=== PATIENT | male | born 1985 | race Caucasian/White ===

== ENCOUNTER 2018-12-17 08:26 | Inpatient (IN) | payer OTHER ==
[2018-12-17 08:50] VITALS: BMI 34.4
--- NOTE | 2018-12-17 08:59 | HP ---
CIWA Score Nausea/Vomitin Muscle Tremors: 4-Moderate,w/Arms Extend Anxiety: 4-Mod. Anxious/Guarded Agitation: 4-Moderately Restless Paroxysmal Sweats: 3 Orientation: 0-Oriented Tacttile Disturbances: 1-Very Mild Itch/Numbness Auditory Disturbances: 0-None Visual Disturbances: 0-None Headache: 3-Moderate (appropriate for detox) CIWA-Ar Total Score: 22 - Admission Criteria OASAS Guidelines: Admission for Medically Managed Detox: Requires at least one of the followin. CIWA greater than 12 2. Seizures within the past 24 hours 3. Delirium tremens within the past 24 hours 4. Hallucinations within the past 24 hours 5. Acute intervention needed for co occurring medical disorder 6. Acute intervention needed for co occurring psychiatric disorder 7. Severe withdrawal that cannot be handled at a lower level of care (continued vomiting, continued diarrhea, abnormal vital signs) requiring intravenous medication and/or fluids 8. Admitting History and Physical - Admission Chief Complaint: " I want to come back to detox. I walked out 2 days ago to go drink again." History of Present Illness: 33 year old male with history of alcohol dependence with acute withdrawals. His CIWA is elevated. He admits to signing out AMA 2 days ago to go and drink binge. He last drank this morning one beer. Poor appetite. He is drinking 50 ml of vodka bottles 10-15 per day and occasional beers. He has not have blackout but has drank into intoxication. He has tremors if he doesn't continue drinking. He was a social drinker until the 2 months ago when mother . He does not smoke ciggarettes, last smoked 6 months ago. He has used cocaine sporadically, last used 6 months ago. PMH: Asthma Psurg: None FHx: Mother multiple strokes, HTN Father from cirrhosis and alcoholic and opioid use disorder Brother: 4 in good health. Sister: 1 in good father, half sister 8 year old daughter and has a spouse. - Past Surgical History Past Surgical History: Yes: None - Advance Directives Advance Directives: No: Living Will, Health Care Proxy, DNR - Smoking History Smoking history: Former smoker Have you smoked in the past 12 months: Yes Aproximately how many cigarettes per day: 10 (6 months ago) If you are a former smoker, when did you quit?: 6 months ago - Alcohol/Substance Use Hx Alcohol Use: Yes (up to 5 liters vodka per day binges) Number of Drinks Daily: 50 History of Substance Use: reports: Cocaine Date of Last Use: 12/17/18 - Social History Usual Living Arrangement: Yes: With Spouse Do you think of yourself as: Straight/Heterosexual ADL: Independent History of Recent Travel: No [facility]mission [facility] Chief Complaint: " I want to come back to detox. I walked out 2 days ago to go drink again." Allergies/Adverse Reactions: Allergies Allergy/AdvReac Type Severity Reaction Status Date / Time No Known Allergies Allergy Verified 12/17/18 08:33 History of Present Illness: 33 year old male with history of alcohol dependence with acute withdrawals. His CIWA is elevated. He admits to signing out AMA 2 days ago to go and drink binge. He last drank this morning one beer. Poor appetite. He is drinking 50 ml of vodka bottles 10-15 per day and occasional beers. He has not have blackout but has drank into intoxication. He has tremors if he doesn't continue drinking. He was a social drinker until the 2 months ago when mother . He does not smoke ciggarettes, last smoked 6 months ago. He has used cocaine sporadically, last used 6 months ago. PMH: Asthma Psurg: None FHx: Mother multiple strokes, HTN Father from cirrhosis and alcoholic and opioid use disorder Brother: 4 in good health. Sister: 1 in good father, half sister 8 year old daughter and has a spouse. - Ebola screening Have you traveled outside of the country in the last 21 days: No Have you had contact with anyone from an Ebola affected area: No Have you been sick,other than usual withdrawal symptoms: No Do you have a fever: No - Review of Systems Constitutional: Diaphoresis, Loss of Appetite, Night Sweats EENT: reports: Blurred Vision Respiratory: reports: No Symptoms reported Cardiac: reports: No Symptoms Reported GI: reports: Nausea, Vomiting, Abdominal cramping : reports: No Symptoms Reported Musculoskeletal: reports: No Symptoms Reported Integumentary: reports: No Symptoms Reported Neuro: reports: No Symptoms reported Endocrine: reports: No Symptoms Reported Hematology: reports: No Symptoms Reported Psychiatric: reports: Judgement Intact, Orientated x3, Agitated, Anxious Other Systems: Reviewed and Negative Patient History - Patient Medical History Hx Anemia: No Hx Asthma: Yes Hx Chronic Obstructive Pulmonary Disease (COPD): No Hx Cancer: No Hx Cardiac Disorders: No Hx Congestive Heart Failure: No Hx Hypertension: No Hx Hypercholesterolemia: No Hx Pacemaker: No HX Cerebrovascular Accident: No Hx Seizures: No Hx Dementia: No Hx Diabetes: No Hx Gastrointestinal Disorders: No Hx Liver Disease: No Hx Genitourinary Disorders: No Hx Sexually Transmitted Disorders: No Hx Renal Disease (ESRD): No Hx Thyroid Disease: No Hx Human Immunodeficiency Virus (HIV): No Hx Hepatitis C: No Hx Depression: No Hx Suicide Attempt: No Hx Bipolar Disorder: No Hx Schizophrenia: No - Patient Surgical History Past Surgical History: No - PPD History Previous Implant?: Yes (1 year ago) Documented Results: Positive w/o proof Implanted On Prior [facility] Admission?: Yes Date: 11/20/17 Results: negative PPD to be Administered?: Yes - Smoking Cessation Smoking history: Former smoker Have you smoked in the past 12 months: Yes Aproximately how many cigarettes per day: 10 (6 months ago) Hx Chewing Tobacco Use: No Initiated information on smoking cessation: No - Substance & Tx. History Hx Alcohol Use: Yes (5 liters of vodka binges) Hx Substance Use: Yes Substance Use Type: Alcohol, Cocaine Hx Substance Use Treatment: Yes - Substances abused Alcohol Substance route: Oral Frequency: Daily Amount used: 10-15 nips of vodka & 1-2 beers Age of first use: 21 Date of last use: 12/17/18 Admission Physical Exam [facility] - Vital Signs Vital Signs: Vital Signs - 24 hr 12/17/18 08:33 Temperature 98.0 F Pulse Rate 112 H Respiratory 20 Rate Blood Pressure 180/109 H - Physical General Appearance: Yes: Moderate Distress HEENTM: Yes: EOMI, Hearing grossly Normal, Normal Voice, JUDI, Pharynx Normal, Tm's normal Respiratory: Yes: Chest Non-Tender, Lungs Clear, Normal Breath Sounds, No Respiratory Distress, No Accessory Muscle Use Neck: Yes: No masses,lesions,Nodules, Supple, Trachea in good position Breast: Yes: Within Normal Limits Cardiology: Yes: Regular Rhythm, Regular Rate, S1, S2 Abdominal: Yes: Non Tender, Increased Bowel Sounds, Protuberent Genitourinary: Yes: Within Normal Limits Back: Yes: Within Normal Limits Musculoskeletal: Yes: full range of Motion, Gait Steady Extremities: Yes: Normal Capillary Refill, Normal Inspection, Normal Range of Motion, Non-Tender 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, Fully Oriented, Alert, Motor Strength 5/5, Normal Mood/Affect Integumentary: Yes: Normal Color, Warm Lymphatic: Yes: Within Normal Limits - Diagnostic (1) Alcohol dependence with withdrawal Current Visit: Yes Status: Acute (2) Asthma Current Visit: Yes Status: Acute Cleared for Admission [facility] - Detox or Rehab [facility] Level of Care: Medically Managed Detox Regimen/Protocol: Librium Claeared for Rehab Admission: No Screened but not Admitted - Documentation of Visit Screened but not Admitted: No Breathalyzer - Breathalyzer Breathalyzer: 0.42 Inpatient Rehab Admission - Rehab Decision to Admit Inpatient rehab admission?: No
[2018-12-17] MEDS ORDERED: MAGNESIUM HYDROX 2400MG/30ML ORAL SUSPENSION 30 ML CUP PO PRN (09:07)
[2018-12-17] MEDS ORDERED: METHOCARBAMOL 500 MG TABLET PO PRN (09:07)
[2018-12-17] MEDS ORDERED: IBUPROFEN 400 MG TABLET (FP) PO PRN (09:07)
[2018-12-17] MEDS ORDERED: MAG HYDROX/AL HYDROX/SIMETH 30 ML UNIT-DOSE CUP PO PRN (09:07)
[2018-12-17] MEDS ORDERED: chlordiazePOXIDE HCL 25 MG CAPSULE PO PRN (09:07)
[2018-12-17] MEDS ORDERED: BISMUTH SUBSALICYLATE 262 MG/15 ML BTL PO PRN (09:07)
[2018-12-17] MEDS ORDERED: MAGNESIUM CITRATE 300 ML BOTTLE PO PRN (09:07)
[2018-12-17] MEDS ORDERED: ACETAMINOPHEN 325 MG TABLET (FP) PO PRN ×2 (09:07)
[2018-12-17] MEDS ORDERED: MENTHOL/PHENOL 1 EACH UD MM PRN (09:07)
[2018-12-17] MEDS ORDERED: ALBUTEROL SO4 8 GM HFA INHALER IH PRN (09:08)
[2018-12-17] MEDS: chlordiazePOXIDE HCL 25 MG CAPSULE PO SCH ×3 (11:29→22:02)
[2018-12-17] MEDS: PRENATAL VITAMINS W/ FOLIC ACID TABLET (FP) PO SCH (11:30)
[2018-12-17] MEDS: hydrOXYzine PAMOATE 25 MG CAPSULE (FP) PO PRN (13:56)
[2018-12-17 14:18] LABS: HEMATOCRIT 45.2 % (35.4-49); HEMOGLOBIN 15.2 GM/dL (11.7-16.9); MCH 32.6 pg (25.7-33.7); MCHC 33.6 g/dl (32.0-35.9); MEAN CELL VOLUME 97.1 fl (80-96); PLATELET COUNT 247 K/MM3 (134-434); RBC 4.66 M/mm3 (4.00-5.60); RDW 14.5 % (11.9-15.9); WHITE BLOOD COUNT 7.9 K/mm3 (4.0-10.0)
[2018-12-17 14:32] LABS: ALBUMIN 4.1 g/dl (3.4-5.0); BLOOD UREA NITROGEN 4.2 mg/dL (7-18); CALCIUM 9.1 mg/dL (8.5-10.1); CREATININE 0.8 mg/dL (0.55-1.3); POTASSIUM 3.3 mmol/L (3.5-5.1); TOT PROT 8.4 g/dl (6.4-8.2)
[2018-12-17] MEDS: THIAMINE HCL 100 MG TABLET (FP) PO SCH (22:02)
[2018-12-17] MEDS: MELATONIN 5 MG TABLETS PO PRN (22:03)
[2018-12-18] MEDS: chlordiazePOXIDE HCL 25 MG CAPSULE PO SCH ×4 (05:54→22:32)
[2018-12-18 09:52] LABS: HEMATOCRIT 41.6 % (35.4-49); HEMOGLOBIN 13.9 GM/dL (11.7-16.9); MCH 32.5 pg (25.7-33.7); MCHC 33.4 g/dl (32.0-35.9); MEAN CELL VOLUME 97.3 fl (80-96); MEAN PLT VOLUME 10.1 fl (7.5-11.1); PLATELET COUNT 184 K/MM3 (134-434); RBC 4.27 M/mm3 (4.00-5.60); RDW 13.9 % (11.9-15.9); WHITE BLOOD COUNT 5.1 K/mm3 (4.0-10.0)
[2018-12-18] MEDS: PRENATAL VITAMINS W/ FOLIC ACID TABLET (FP) PO SCH (10:36)
--- NOTE | 2018-12-18 10:51 | PN ---
S CIWA - CIWA Score Nausea/Vomitin-No Nausea/No Vomiting Muscle Tremors: 3 Anxiety: 3 Agitation: 3 Paroxysmal Sweats: 3 Orientation: 0-Oriented Tacttile Disturbances: 0-None Auditory Disturbances: 0-None Visual Disturbances: 0-None Headache: 0-None Present CIWA-Ar Total Score: 12 [facility] Progress Note (SOAP) Subjective: sweats shakes body aches irritable agitation interrupted sleep Objective: 12/18/18 10:49 Vital Signs Temperature 98.1 F 12/18/18 09:45 Pulse Rate 115 H 12/18/18 09:45 Respiratory Rate 20 12/18/18 09:45 Blood Pressure 157/99 12/18/18 09:45 O2 Sat by Pulse Oximetry (%) Laboratory Tests 12/17/18 12/17/18 12/17/18 09:50 09:50 09:50 WBC 7.9 RBC 4.66 Hgb 15.2 Hct 45.2 MCV 97.1 H MCH 32.6 MCHC 33.6 RDW 14.5 Plt Count 247 MPV 10.0 Sodium 134 L Potassium 3.3 L Chloride 93 L Carbon Dioxide 27 Anion Gap 14 BUN 4.2 L Creatinine 0.8 Est GFR (CKD-EPI)AfAm 136.03 Est GFR (CKD-EPI)NonAf 117.37 Random Glucose 114 H Calcium 9.1 Total Bilirubin 2.0 H AST 258 H ALT 99 H Alkaline Phosphatase 108 Total Protein 8.4 H Albumin 4.1 RPR Titer Nonreactive 12/18/18 08:15 WBC 5.1 RBC 4.27 Hgb 13.9 Hct 41.6 MCV 97.3 H MCH 32.5 MCHC 33.4 RDW 13.9 Plt Count 184 D MPV 10.1 Sodium Potassium Chloride Carbon Dioxide Anion Gap BUN Creatinine Est GFR (CKD-EPI)AfAm Est GFR (CKD-EPI)NonAf Random Glucose Calcium Total Bilirubin AST ALT Alkaline Phosphatase Total Protein Albumin RPR Titer labs noted elevated ast/alt d/c tylenol increase fluids repeat labs Assessment: 12/18/18 10:50 withdrawals Plan: continue detox increase fluids repeat labs
[2018-12-18] MEDS ORDERED: ALBUTEROL SO4 8 GM HFA INHALER IH PRN (10:52)
[2018-12-18] MEDS: POTASSIUM CHLORIDE TABS 20 MEQ TABLET.ER (FP) PO SCH (11:12)
[2018-12-18] MEDS: MELATONIN 5 MG TABLETS PO PRN (22:31)
[2018-12-18] MEDS: THIAMINE HCL 100 MG TABLET (FP) PO SCH (22:32)
[2018-12-19] MEDS: chlordiazePOXIDE HCL 25 MG CAPSULE PO SCH ×4 (05:16→22:20)
--- NOTE | 2018-12-19 09:43 | PN ---
[facility] CIWA - CIWA Score Nausea/Vomitin-No Nausea/No Vomiting Muscle Tremors: 3 Anxiety: 3 Agitation: 3 Paroxysmal Sweats: No Perspiration Orientation: 0-Oriented Tacttile Disturbances: 0-None Auditory Disturbances: 0-None Visual Disturbances: 0-None Headache: 0-None Present CIWA-Ar Total Score: 9 S Progress Note (SOAP) Subjective: sweats anxiety body aches Objective: 12/19/18 09:43 Vital Signs Temperature 97.9 F 12/19/18 09:24 Pulse Rate 110 H 12/19/18 09:24 Respiratory Rate 19 12/19/18 09:24 Blood Pressure 153/96 12/19/18 09:24 O2 Sat by Pulse Oximetry (%) Laboratory Tests 12/17/18 12/17/18 12/17/18 09:50 09:50 09:50 WBC 7.9 RBC 4.66 Hgb 15.2 Hct 45.2 MCV 97.1 H MCH 32.6 MCHC 33.6 RDW 14.5 Plt Count 247 MPV 10.0 Sodium 134 L Potassium 3.3 L Chloride 93 L Carbon Dioxide 27 Anion Gap 14 BUN 4.2 L Creatinine 0.8 Est GFR (CKD-EPI)AfAm 136.03 Est GFR (CKD-EPI)NonAf 117.37 Random Glucose 114 H Calcium 9.1 Total Bilirubin 2.0 H AST 258 H ALT 99 H Alkaline Phosphatase 108 Total Protein 8.4 H Albumin 4.1 RPR Titer Nonreactive 12/18/18 08:15 WBC 5.1 RBC 4.27 Hgb 13.9 Hct 41.6 MCV 97.3 H MCH 32.5 MCHC 33.4 RDW 13.9 Plt Count 184 D MPV 10.1 Sodium Potassium Chloride Carbon Dioxide Anion Gap BUN Creatinine Est GFR (CKD-EPI)AfAm Est GFR (CKD-EPI)NonAf Random Glucose Calcium Total Bilirubin AST ALT Alkaline Phosphatase Total Protein Albumin RPR Titer repeated labs pending aaox3 ambulating no acute distress mild HTN noted Assessment: 12/19/18 09:44 withdrawals pt states his mother recently from a stroke and has a family h/o of HTN. pt was advised to see his PCP and follow up regarding his HTN and family h/o to prevent stoke/or any cardiac issues. pt agreed. Plan: continue detox increase fluids mild HTN noted; will start with low dose antihypertensive medication.
[2018-12-19 10:10] LABS: BASO % 1.5 % (0-2.0); EOS % 2.7 % (0-4.5); HEMATOCRIT 41.9 % (35.4-49); HEMOGLOBIN 14.3 GM/dL (11.7-16.9); LYMPH % 19.4 % (8-40); MCH 32.9 pg (25.7-33.7); MEAN CELL VOLUME 96.8 fl (80-96); MEAN PLT VOLUME 9.8 fl (7.5-11.1); NEUT % 69.4 % (42.8-82.8); PLATELET COUNT 185 K/MM3 (134-434); RBC 4.33 M/mm3 (4.00-5.60); RDW 14.2 % (11.9-15.9); WHITE BLOOD COUNT 5.6 K/mm3 (4.0-10.0)
[2018-12-19 10:18] LABS: ALBUMIN 3.6 g/dl (3.4-5.0); CALCIUM 8.9 mg/dL (8.5-10.1); CREATININE 0.9 mg/dL (0.55-1.3); POTASSIUM 3.5 mmol/L (3.5-5.1); TOT PROT 7.6 g/dl (6.4-8.2)
[2018-12-19] MEDS: POTASSIUM CHLORIDE TABS 20 MEQ TABLET.ER (FP) PO SCH (10:19)
[2018-12-19] MEDS: PRENATAL VITAMINS W/ FOLIC ACID TABLET (FP) PO SCH (10:19)
[2018-12-19] MEDS: amLODIPine BESYLATE 5 MG TABLET (FP) PO SCH (10:19)
[2018-12-19] MEDS: cloNIDine HCL 0.1 MG TABLET PO SCH ×2 (14:12→22:20)
[2018-12-19] MEDS: MELATONIN 5 MG TABLETS PO PRN (22:20)
[2018-12-19] MEDS: THIAMINE HCL 100 MG TABLET (FP) PO SCH (22:20)
[2018-12-20] MEDS ORDERED: chlordiazePOXIDE HCL 10 MG CAPSULE PO PRN
[2018-12-20] MEDS: chlordiazePOXIDE HCL 10 MG CAPSULE PO SCH ×4 (05:54→22:16)
--- NOTE | 2018-12-20 10:02 | PN ---
[facility] CIWA - CIWA Score Nausea/Vomitin-No Nausea/No Vomiting Muscle Tremors: 2 Anxiety: 1-Mildly Anxious Agitation: 1-Slight > Activity Paroxysmal Sweats: 1-Minimal Palms Moist Orientation: 0-Oriented Tacttile Disturbances: 0-None Auditory Disturbances: 0-None Visual Disturbances: 0-None Headache: 0-None Present CIWA-Ar Total Score: 5 [facility] Progress Note (SOAP) Subjective: sweats anxiety Objective: 12/20/18 10:01 Vital Signs Temperature 98.1 F 12/20/18 09:29 Pulse Rate 93 H 12/20/18 09:29 Respiratory Rate 18 12/20/18 09:29 Blood Pressure 128/80 12/20/18 09:29 O2 Sat by Pulse Oximetry (%) aaox3 ambulating no acute distress BP improving Assessment: 12/20/18 10:02 mild withdrawals Plan: continue detox continue with clonidine and norvasc until d/c for his HTN pt encouraged to speak and f/u with his PCP and pt agrees.
[2018-12-20] MEDS: amLODIPine BESYLATE 5 MG TABLET (FP) PO SCH (10:19)
[2018-12-20] MEDS: PRENATAL VITAMINS W/ FOLIC ACID TABLET (FP) PO SCH (10:19)
[2018-12-20] MEDS: POTASSIUM CHLORIDE TABS 20 MEQ TABLET.ER (FP) PO SCH (10:19)
[2018-12-20] MEDS: cloNIDine HCL 0.1 MG TABLET PO SCH ×2 (10:19→22:16)
[2018-12-20] MEDS: THIAMINE HCL 100 MG TABLET (FP) PO SCH (22:16)
[2018-12-20] MEDS: MELATONIN 5 MG TABLETS PO PRN (22:17)
[2018-12-21] MEDS: hydrOXYzine PAMOATE 25 MG CAPSULE (FP) PO PRN (01:59)
[2018-12-21] MEDS: chlordiazePOXIDE HCL 10 MG CAPSULE PO SCH ×2 (05:35→16:39)
[2018-12-21] MEDS: amLODIPine BESYLATE 5 MG TABLET (FP) PO SCH (09:24)
[2018-12-21] MEDS: POTASSIUM CHLORIDE TABS 20 MEQ TABLET.ER (FP) PO SCH (09:24)
[2018-12-21] MEDS: cloNIDine HCL 0.1 MG TABLET PO SCH ×2 (09:24→21:45)
[2018-12-21] MEDS: PRENATAL VITAMINS W/ FOLIC ACID TABLET (FP) PO SCH (09:24)
--- NOTE | 2018-12-21 11:35 | PN ---
S CIWA - CIWA Score Nausea/Vomitin-No Nausea/No Vomiting Muscle Tremors: 2 Anxiety: 0-No Anxiety, at Ease Agitation: 1-Slight > Activity Paroxysmal Sweats: No Perspiration Orientation: 0-Oriented Tacttile Disturbances: 0-None Auditory Disturbances: 0-None Visual Disturbances: 0-None Headache: 0-None Present CIWA-Ar Total Score: 3 [facility] Progress Note (SOAP) Subjective: feeling better little anxiety Objective: 12/21/18 11:34 Vital Signs Temperature 97.7 F 12/21/18 09:38 Pulse Rate 87 12/21/18 09:38 Respiratory Rate 18 12/21/18 09:38 Blood Pressure 130/77 12/21/18 09:38 O2 Sat by Pulse Oximetry (%) aaox3 ambulating no acute distress Assessment: 12/21/18 11:34 mild withdrawals Plan: continue detox d/c in am
[2018-12-21] MEDS: THIAMINE HCL 100 MG TABLET (FP) PO SCH (21:44)
[2018-12-21] MEDS: MELATONIN 5 MG TABLETS PO PRN (21:45)
[2018-12-22] MEDS: hydrOXYzine PAMOATE 25 MG CAPSULE (FP) PO PRN (02:38)
[2018-12-22] MEDS ORDERED: chlordiazePOXIDE HCL 10 MG CAPSULE PO ONE (05:00)
--- NOTE | 2018-12-22 09:14 | DS ---
[facility] Detox Discharge Summary Admission Date: 12/17/18 Discharge Date: 12/22/18 - History Present History: Alcohol Dependence - Physical Exam Results Vital Signs: Vital Signs Temperature 97.9 F 12/22/18 05:41 Pulse Rate 90 12/22/18 05:41 Respiratory Rate 18 12/22/18 05:41 Blood Pressure 134/84 12/22/18 05:41 O2 Sat by Pulse Oximetry (%) Pertinent Admission Physical Exam Findings: pt arrived in withdrawal Vital Signs Temperature 97.9 F 12/22/18 05:41 Pulse Rate 90 12/22/18 05:41 Respiratory Rate 18 12/22/18 05:41 Blood Pressure 134/84 12/22/18 05:41 O2 Sat by Pulse Oximetry (%) Laboratory Tests 12/17/18 12/17/18 12/17/18 09:50 09:50 09:50 WBC 7.9 RBC 4.66 Hgb 15.2 Hct 45.2 MCV 97.1 H MCH 32.6 MCHC 33.6 RDW 14.5 Plt Count 247 MPV 10.0 Absolute Neuts (auto) Neutrophils % Lymphocytes % Monocytes % Eosinophils % Basophils % Nucleated RBC % Sodium 134 L Potassium 3.3 L Chloride 93 L Carbon Dioxide 27 Anion Gap 14 BUN 4.2 L Creatinine 0.8 Est GFR (CKD-EPI)AfAm 136.03 Est GFR (CKD-EPI)NonAf 117.37 Random Glucose 114 H Calcium 9.1 Total Bilirubin 2.0 H AST 258 H ALT 99 H Alkaline Phosphatase 108 Total Protein 8.4 H Albumin 4.1 RPR Titer Nonreactive 12/18/18 12/19/18 12/19/18 08:15 08:30 08:30 WBC 5.1 5.6 RBC 4.27 4.33 Hgb 13.9 14.3 Hct 41.6 41.9 MCV 97.3 H 96.8 H MCH 32.5 32.9 MCHC 33.4 34.0 RDW 13.9 14.2 Plt Count 184 D 185 MPV 10.1 9.8 Absolute Neuts (auto) 3.9 Neutrophils % 69.4 Lymphocytes % 19.4 Monocytes % 7.0 Eosinophils % 2.7 Basophils % 1.5 Nucleated RBC % 0 Sodium 135 L Potassium 3.5 Chloride 98 Carbon Dioxide 29 Anion Gap 8 BUN 5.0 L Creatinine 0.9 Est GFR (CKD-EPI)AfAm 129.61 Est GFR (CKD-EPI)NonAf 111.83 Random Glucose 119 H Calcium 8.9 Total Bilirubin 2.0 H AST 160 H ALT 91 H Alkaline Phosphatase 97 Total Protein 7.6 Albumin 3.6 RPR Titer today pt is aaox3 ambulating no acute distress no s/s of withdrawals - Treatment Hospital Course: Detox Protocol Followed, Detoxed Safely, Responded well, Discharged Condition Good, Rehab Referral Accepted Patient has Accepted a Rehab Referral to: referral provided - Medication Discharge Medications: Ambulatory Orders Albuterol Sulfate Inhaler - [Ventolin Hfa Inhaler -] 1 - 2 inh PO PRN PRN - Diagnosis (1) Alcohol dependence with withdrawal Current Visit: Yes Status: Chronic Qualifiers: Complication of substance-induced condition: uncomplicated Qualified Code(s ): F10.230 - Alcohol dependence with withdrawal, uncomplicated (2) Asthma Current Visit: Yes Status: Chronic Qualifiers: Asthma severity: mild Asthma persistence: unspecified Asthma complication type: unspecified Qualified Code(s): J45.909 - Unspecified asthma , uncomplicated (3) Hypertension Current Visit: Yes Status: Acute Qualifiers: Hypertension type: unspecified Qualified Code(s): I10 - Essential (primary ) hypertension - AMA Did Patient Leave Against Medical Advice: No
[2018-12-22 09:27] VITALS: BP 135/87; PULSE 98; TEMP 97.7
[2018-12-22] MEDS: amLODIPine BESYLATE 5 MG TABLET (FP) PO SCH (09:39)
[2018-12-22] MEDS: cloNIDine HCL 0.1 MG TABLET PO SCH (09:39)
[2018-12-22] MEDS: PRENATAL VITAMINS W/ FOLIC ACID TABLET (FP) PO SCH (09:40)
== END 2018-12-22 09:45 | disposition home or self-care (01) | DRG 775 ==
LOC: YASAS 08:26 → Y6N 09:51
PROVIDERS: ADMIT Allergy & Immunology; ATTEND Allergy & Immunology
PROC: HZ2ZZZZ Detoxification Services for Substance Abuse Treatment (ICD-10-PCS; principal; 2018-12-17)
DX: F10.230 Alcohol dependence with withdrawal, uncomplicated (principal); I10 Essential (primary) hypertension; J45.909 Unspecified asthma, uncomplicated; R74.0 Nonspecific elevation of levels of transaminase and lactic acid dehydrogenase [LDH]; E87.6 Hypokalemia; Z87.891 Personal history of nicotine dependence
CPT/HCPCS: 36415; 80053; 85025; 85027; 86593; J0735

== ENCOUNTER 2019-01-21 10:50 | Inpatient (IN) | payer OTHER ==
[2019-01-21 11:25] VITALS: BMI 33.1
--- NOTE | 2019-01-21 12:06 | HP ---
CIWA Score Nausea/Vomitin-Mild Nausea/No Vomiting Muscle Tremors: 3 Anxiety: 4-Mod. Anxious/Guarded Agitation: 3 Paroxysmal Sweats: 1-Minimal Palms Moist Orientation: 1-Uncertain about Date Tacttile Disturbances: 0-None Auditory Disturbances: 0-None Visual Disturbances: 0-None Headache: 2-Mild CIWA-Ar Total Score: 15 - Admission Criteria OASAS Guidelines: Admission for Medically Managed Detox: Requires at least one of the followin. CIWA greater than 12 2. Seizures within the past 24 hours 3. Delirium tremens within the past 24 hours 4. Hallucinations within the past 24 hours 5. Acute intervention needed for co occurring medical disorder 6. Acute intervention needed for co occurring psychiatric disorder 7. Severe withdrawal that cannot be handled at a lower level of care (continued vomiting, continued diarrhea, abnormal vital signs) requiring intravenous medication and/or fluids 8. Admitting History and Physical - Admission Chief Complaint: "I want to stop drinking and get help." History of Present Illness: 33 year old male with history of alcohol dependence with withdrawal who relapsed over the iday. He did complete detox in 11/2018 and was fine until the . He re-started drinking alcohol on 01/12/19. He wants to be readmitted for detox this time but follow up with rehab and then go to an outpatient treatment program. He is drinking 10-15 nips of vodka daily, last drank this morning. Breathalyzer today is 0.182 He has never blacked out. Patient denies seizures on withdrawals. 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 He stopped smoking ciggarettes years ago. PMH: Asthma, HTN Psurg: None Patient no pending legal issues History Source: Patient Limitations to Obtaining History: No Limitations - Past Medical History Cardiovascular: Yes: HTN Pulmonary: Yes: Asthma - Past Surgical History Past Surgical History: Yes: None - Smoking History Smoking history: Former smoker Have you smoked in the past 12 months: Yes Aproximately how many cigarettes per day: 10 If you are a former smoker, when did you quit?: 6 months ago - Alcohol/Substance Use Hx Alcohol Use: Yes (5 liters of vodka binges) Number of Drinks Daily: 50 History of Substance Use: reports: Cocaine Date of Last Use: 10/28/19 - Social History Usual Living Arrangement: Yes: Alone Do you think of yourself as: Straight/Heterosexual ADL: Independent 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 - [facility] Allergies/Adverse Reactions: Allergies Allergy/AdvReac Type Severity Reaction Status Date / Time No Known Allergies Allergy Verified 01/21/19 11:19 Exam Limitations: No Limitations - Ebola screening Have you traveled outside of the country in the last 21 days: No (N) Have you had contact with anyone from an Ebola affected area: No Have you been sick,other than usual withdrawal symptoms: No Do you have a fever: No - Review of Systems Constitutional: Chills, Diaphoresis, Loss of Appetite EENT: reports: No Symptoms Reported Respiratory: reports: No Symptoms reported Cardiac: reports: No Symptoms Reported GI: reports: Nausea : reports: No Symptoms Reported Musculoskeletal: reports: No Symptoms Reported Integumentary: reports: No Symptoms Reported Neuro: reports: No Symptoms reported Endocrine: reports: No Symptoms Reported Hematology: reports: No Symptoms Reported Psychiatric: reports: No Sypmtoms Reported, Judgement Intact, Orientated x3, Agitated, Anxious Other Systems: Reviewed and Negative Patient History - Patient Medical History Hx Anemia: No Hx Asthma: Yes Hx Chronic Obstructive Pulmonary Disease (COPD): No Hx Cancer: No Hx Cardiac Disorders: No Hx Congestive Heart Failure: No Hx Hypertension: No Hx Hypercholesterolemia: No Hx Pacemaker: No HX Cerebrovascular Accident: No Hx Seizures: No Hx Dementia: No Hx Diabetes: No Hx Gastrointestinal Disorders: No Hx Liver Disease: No Hx Genitourinary Disorders: No Hx Sexually Transmitted Disorders: No Hx Renal Disease (ESRD): No Hx Thyroid Disease: No Hx Human Immunodeficiency Virus (HIV): No Hx Hepatitis C: No Hx Depression: No Hx Suicide Attempt: No Hx Bipolar Disorder: No Hx Schizophrenia: No - Patient Surgical History Past Surgical History: No Hx Neurologic Surgery: No Hx Cataract Extraction: No Hx Cardiac Surgery: No Hx Lung Surgery: No Hx Breast Surgery: No Hx Breast Biopsy: No Hx Abdominal Surgery: No Hx Appendectomy: No Hx Cholecystectomy: No Hx Genitourinary Surgery: No Hx Section: No Hx Orthopedic Surgery: No Anesthesia Reaction: No - PPD History Previous Implant?: Yes Documented Results: Negative w/proof Implanted On Prior [facility] Admission?: Yes Date: 12/19/18 Results: negative PPD to be Administered?: Yes - Smoking Cessation Smoking history: Former smoker Have you smoked in the past 12 months: Yes Aproximately how many cigarettes per day: 10 If you are a former smoker, when did you quit?: 6 months ago Hx Chewing Tobacco Use: No Initiated information on smoking cessation: No - Substance & Tx. History Hx Alcohol Use: Yes (nips of vodka daily) Hx Substance Use: Yes Substance Use Type: Alcohol, Marijuana Hx Substance Use Treatment: No - Substances abused Alcohol Substance route: Oral Frequency: Daily Amount used: 10-15 nips of vodka & 1-2 beers Age of first use: 21 Date of last use: 01/19/19 Marijuana/Hashish Substance route: Inhalation Amount used: just used this past week Date of last use: 01/19/19 Admission Physical Exam [facility] - Physical General Appearance: Yes: Moderate Distress HEENTM: Yes: EOMI, Hearing grossly Normal, Normal ENT Inspection, Normocephalic , Normal Voice, JUDI, Pharynx Normal, Tm's normal Respiratory: Yes: Chest Non-Tender, Lungs Clear, Normal Breath Sounds, No Respiratory Distress, No Accessory Muscle Use Neck: Yes: No masses,lesions,Nodules, Supple, Trachea in good position Breast: Yes: Within Normal Limits Cardiology: Yes: Regular Rhythm, S1, S2, Tachycardia Abdominal: Yes: Normal Bowel Sounds, Non Tender, Soft, Protuberent, Hepatomegaly Genitourinary: Yes: Within Normal Limits Back: Yes: Normal Inspection Musculoskeletal: Yes: full range of Motion, Gait Steady, Pelvis Stable Extremities: Yes: Normal Capillary Refill, Normal Inspection 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, Alert, Motor Strength 5/5, Normal Response Integumentary: Yes: Within Normal Limits Lymphatic: Yes: Within Normal Limits - Diagnostic (1) Alcohol dependence with withdrawal Current Visit: No Status: Chronic Qualifiers: Complication of substance-induced condition: uncomplicated Qualified Code(s ): F10.230 - Alcohol dependence with withdrawal, uncomplicated (2) Asthma Current Visit: No Status: Chronic Qualifiers: Asthma severity: mild Asthma persistence: unspecified Asthma complication type: unspecified Qualified Code(s): J45.909 - Unspecified asthma , uncomplicated (3) Hypertension Current Visit: No Status: Acute Qualifiers: Hypertension type: unspecified Qualified Code(s): I10 - Essential (primary ) hypertension Cleared for Admission [facility] - Detox or Rehab [facility] Level of Care: Medically Managed Detox Regimen/Protocol: Not Applicable (ativan detox protocol) Claeared for Rehab Admission: No Screened but not Admitted - Documentation of Visit Screened but not Admitted: No Breathalyzer - Breathalyzer Breathalyzer: 0.217 Vital Signs - Vital Signs Vital signs refused: No Urine Drug Screen - Test Device Lot number: [id number] Expiration date: 08/19/20 - Control Is test valid?: Yes - Results Drug screen NEGATIVE: No Urine drug screen results: THC-Marijuana, BZO-Benzodiazepines Inpatient Rehab Admission - Rehab Decision to Admit Inpatient rehab admission?: No
[2019-01-21] MEDS ORDERED: ALBUTEROL SO4 8 GM HFA INHALER IH PRN ×2 (12:48→18:21)
[2019-01-21] MEDS ORDERED: MAGNESIUM HYDROX 2400MG/30ML ORAL SUSPENSION 30 ML CUP PO PRN (12:49)
[2019-01-21] MEDS ORDERED: MENTHOL/PHENOL 1 EACH UD MM PRN (12:49)
[2019-01-21] MEDS ORDERED: ACETAMINOPHEN 325 MG TABLET (FP) PO PRN ×2 (12:49)
[2019-01-21] MEDS ORDERED: IBUPROFEN 400 MG TABLET (FP) PO PRN (12:49)
[2019-01-21] MEDS ORDERED: BISMUTH SUBSALICYLATE 262 MG/15 ML BTL PO PRN (12:49)
[2019-01-21] MEDS ORDERED: MAG HYDROX/AL HYDROX/SIMETH 30 ML UNIT-DOSE CUP PO PRN (12:49)
[2019-01-21] MEDS ORDERED: LORazepam 1 MG TABLET PO PRN (12:49)
[2019-01-21] MEDS ORDERED: MAGNESIUM CITRATE 300 ML BOTTLE PO PRN (12:49)
[2019-01-21] MEDS ORDERED: METHOCARBAMOL 500 MG TABLET PO PRN (12:49)
[2019-01-21] MEDS: hydrOXYzine PAMOATE 25 MG CAPSULE (FP) PO PRN (15:41)
[2019-01-21] MEDS: LORazepam 2 MG TABLET PO SCH ×2 (16:45→22:01)
[2019-01-21] MEDS ORDERED: cloNIDine HCL 0.1 MG TABLET PO STA (18:59)
[2019-01-21] MEDS ORDERED: cloNIDine HCL 0.1 MG TABLET PO ONE (19:15)
[2019-01-21] MEDS: MELATONIN 5 MG TABLETS PO PRN (22:01)
[2019-01-21] MEDS: THIAMINE HCL 100 MG TABLET (FP) PO SCH (22:01)
[2019-01-22] MEDS: hydrOXYzine PAMOATE 25 MG CAPSULE (FP) PO PRN (01:35)
[2019-01-22] MEDS: LORazepam 2 MG TABLET PO SCH ×4 (05:22→22:08)
[2019-01-22] MEDS: amLODIPine BESYLATE 5 MG TABLET (FP) PO SCH (10:23)
[2019-01-22] MEDS: PRENATAL VITAMINS W/ FOLIC ACID TABLET (FP) PO SCH (10:23)
--- NOTE | 2019-01-22 12:04 | PN ---
S CIWA - CIWA Score Nausea/Vomitin-No Nausea/No Vomiting Muscle Tremors: 4-Moderate,w/Arms Extend Anxiety: 3 Agitation: 4-Moderately Restless Paroxysmal Sweats: 3 Orientation: 0-Oriented Tacttile Disturbances: 0-None Auditory Disturbances: 0-None Visual Disturbances: 0-None Headache: 0-None Present CIWA-Ar Total Score: 14 [facility] Progress Note (SOAP) Subjective: sweats shakes interrupted sleep body aches tired Objective: 01/22/19 12:04 Vital Signs Temperature 97.7 F 01/22/19 09:25 Pulse Rate 99 H 01/22/19 09:25 Respiratory Rate 14 01/22/19 09:25 Blood Pressure 134/73 01/22/19 09:25 O2 Sat by Pulse Oximetry (%) labs pending aaox3 sitting at edge of bed; eating lunch no acute distress Assessment: 01/22/19 12:04 withdrawals Plan: continue detox increase fluids
--- NOTE | 2019-01-22 15:00 | PN ---
[facility] Progress Note Note: [facility] History and Physical Patient Name: ANGIE FREGOSO Date of : 85 Patient Status: Referred Attending Provider: Tung Domínguez Date: 01/21/19 12:00 Initialization Date: 01/21/19 12:00 CIWA Score Nausea/Vomitin-Mild Nausea/No Vomiting Muscle Tremors: 3 Anxiety: 4-Mod. Anxious/Guarded Agitation: 3 Paroxysmal Sweats: 1-Minimal Palms Moist Orientation: 1-Uncertain about Date Tacttile Disturbances: 0-None Auditory Disturbances: 0-None Visual Disturbances: 0-None Headache: 2-Mild CIWA-Ar Total Score: 15 - Admission Criteria OASAS Guidelines: Admission for Medically Managed Detox: Requires at least one of the followin. CIWA greater than 12 2. Seizures within the past 24 hours 3. Delirium tremens within the past 24 hours 4. Hallucinations within the past 24 hours 5. Acute intervention needed for co occurring medical disorder 6. Acute intervention needed for co occurring psychiatric disorder 7. Severe withdrawal that cannot be handled at a lower level of care (continued vomiting, continued diarrhea, abnormal vital signs) requiring intravenous medication and/or fluids 8. Admitting History and Physical - Admission Chief Complaint: "I want to stop drinking and get help." History of Present Illness: 33 year old male with history of alcohol dependence with withdrawal who relapsed over the idays. He did complete detox in 11/2018 and was fine until the . He re-started drinking alcohol on 01/12/19. He wants to be readmitted for detox this time but follow up with rehab and then go to an outpatient treatment program. He is drinking 10-15 nips of vodka daily, last drank this morning. Breathalyzer today is 0.182 He has never blacked out. Patient denies seizures on withdrawals. 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 He stopped smoking ciggarettes years ago. PMH: Asthma, HTN Psurg: None Patient no pending legal issues History Source: Patient Limitations to Obtaining History: No Limitations - Past Medical History Cardiovascular: Yes: HTN Pulmonary: Yes: Asthma - Past Surgical History Past Surgical History: Yes: None - Smoking History Smoking history: Former smoker Have you smoked in the past 12 months: Yes Aproximately how many cigarettes per day: 10 If you are a former smoker, when did you quit?: 6 months ago - Alcohol/Substance Use Hx Alcohol Use: Yes (5 liters of vodka binges) Number of Drinks Daily: 50 History of Substance Use: reports: Cocaine Date of Last Use: 12/17/18 - Social History Usual Living Arrangement: Yes: Alone Do you think of yourself as: Straight/Heterosexual ADL: Independent 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, 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 Travel: No Admission [facility] Allergies/Adverse Reactions: Allergies Allergy/AdvReac Type Severity Reaction Status Date / Time No Known Allergies Allergy Verified 01/21/19 11:19 Exam Limitations: No Limitations - Ebola screening Have you traveled outside of the country in the last 21 days: No (N) Have you had contact with anyone from an Ebola affected area: No Have you been sick,other than usual withdrawal symptoms: No Do you have a fever: No - Review of Systems Constitutional: Chills, Diaphoresis, Loss of Appetite EENT: reports: No Symptoms Reported Respiratory: reports: No Symptoms reported Cardiac: reports: No Symptoms Reported GI: reports: Nausea : reports: No Symptoms Reported Musculoskeletal: reports: No Symptoms Reported Integumentary: reports: No Symptoms Reported Neuro: reports: No Symptoms reported Endocrine: reports: No Symptoms Reported Hematology: reports: No Symptoms Reported Psychiatric: reports: No Sypmtoms Reported, Judgement Intact, Orientated x3, Agitated, Anxious Other Systems: Reviewed and Negative Patient History - Patient Medical History Hx Anemia: No Hx Asthma: Yes Hx Chronic Obstructive Pulmonary Disease (COPD): No Hx Cancer: No Hx Cardiac Disorders: No Hx Congestive Heart Failure: No Hx Hypertension: No Hx Hypercholesterolemia: No Hx Pacemaker: No HX Cerebrovascular Accident: No Hx Seizures: No Hx Dementia: No Hx Diabetes: No Hx Gastrointestinal Disorders: No Hx Liver Disease: No Hx Genitourinary Disorders: No Hx Sexually Transmitted Disorders: No Hx Renal Disease (ESRD): No Hx Thyroid Disease: No Hx Human Immunodeficiency Virus (HIV): No Hx Hepatitis C: No Hx Depression: No Hx Suicide Attempt: No Hx Bipolar Disorder: No Hx Schizophrenia: No - Patient Surgical History Past Surgical History: No Hx Neurologic Surgery: No Hx Cataract Extraction: No Hx Cardiac Surgery: No Hx Lung Surgery: No Hx Breast Surgery: No Hx Breast Biopsy: No Hx Abdominal Surgery: No Hx Appendectomy: No Hx Cholecystectomy: No Hx Genitourinary Surgery: No Hx Section: No Hx Orthopedic Surgery: No Anesthesia Reaction: No - PPD History Previous Implant?: Yes Documented Results: Negative w/proof Implanted On Prior [facility] Admission?: Yes Date: 12/19/18 Results: negative PPD to be Administered?: Yes - Smoking Cessation Smoking history: Former smoker Have you smoked in the past 12 months: Yes Aproximately how many cigarettes per day: 10 If you are a former smoker, when did you quit?: 6 months ago Hx Chewing Tobacco Use: No Initiated information on smoking cessation: No - Substance & Tx. History Hx Alcohol Use: Yes (nips of vodka daily) Hx Substance Use: Yes Substance Use Type: Alcohol, Marijuana Hx Substance Use Treatment: No - Substances abused Alcohol Substance route: Oral Frequency: Daily Amount used: 10-15 nips of vodka & 1-2 beers Age of first use: 21 Date of last use: 01/19/19 Marijuana/Hashish Substance route: Inhalation Amount used: just used this past week Date of last use: 01/19/19 Admission Physical Exam [facility] - Physical General Appearance: Yes: Moderate Distress HEENTM: Yes: EOMI, Hearing grossly Normal, Normal ENT Inspection, Normocephalic , Normal Voice, JUDI, Pharynx Normal, Tm's normal Respiratory: Yes: Chest Non-Tender, Lungs Clear, Normal Breath Sounds, No Respiratory Distress, No Accessory Muscle Use Neck: Yes: No masses,lesions,Nodules, Supple, Trachea in good position Breast: Yes: Within Normal Limits Cardiology: Yes: Regular Rhythm, S1, S2, Tachycardia Abdominal: Yes: Normal Bowel Sounds, Non Tender, Soft, Protuberent, Hepatomegaly Genitourinary: Yes: Within Normal Limits Back: Yes: Normal Inspection Musculoskeletal: Yes: full range of Motion, Gait Steady, Pelvis Stable Extremities: Yes: Normal Capillary Refill, Normal Inspection Neurological: Yes: terra cotta setter II-XII NML intact, Alert, Motor Strength 5/5, Normal Response Integumentary: Yes: Within Normal Limits Lymphatic: Yes: Within Normal Limits - Diagnostic (1) Hypertension Current Visit: Yes Status: Acute Qualifiers: Hypertension type: unspecified Qualified Code(s): I10 - Essential (primary ) hypertension (2) Alcohol dependence with withdrawal Current Visit: Yes Status: Chronic Qualifiers: Complication of substance-induced condition: uncomplicated Qualified Code(s ): F10.230 - Alcohol dependence with withdrawal, uncomplicated (3) Asthma Current Visit: Yes Status: Chronic Qualifiers: Asthma severity: mild Asthma persistence: unspecified Asthma complication type: unspecified Qualified Code(s): J45.909 - Unspecified asthma , uncomplicated Cleared for Admission [facility] - Detox or Rehab [facility] Level of Care: Medically Managed Detox Regimen/Protocol: Not Applicable (ativan detox protocol) Claeared for Rehab Admission: No Screened but not Admitted - Documentation of Visit Screened but not Admitted: No Breathalyzer - Breathalyzer Breathalyzer: 0.217 Vital Signs - Vital Signs Vital signs refused: No Urine Drug Screen - Test Device Lot number: [id number] Expiration date: 08/19/20 - Control Is test valid?: Yes - Results Drug screen NEGATIVE: No Urine drug screen results: THC-Marijuana, BZO-Benzodiazepines Inpatient Rehab Admission - Rehab Decision to Admit Inpatient rehab admission?: No
[2019-01-22] MEDS: THIAMINE HCL 100 MG TABLET (FP) PO SCH (22:07)
[2019-01-22] MEDS: MELATONIN 5 MG TABLETS PO PRN (22:08)
[2019-01-23] MEDS: LORazepam 1 MG TABLET PO SCH ×4 (04:43→22:01)
[2019-01-23] MEDS: hydrOXYzine PAMOATE 25 MG CAPSULE (FP) PO PRN (04:43)
[2019-01-23] MEDS: amLODIPine BESYLATE 5 MG TABLET (FP) PO SCH (10:19)
[2019-01-23] MEDS: PRENATAL VITAMINS W/ FOLIC ACID TABLET (FP) PO SCH (10:19)
--- NOTE | 2019-01-23 10:24 | PN ---
S CIWA - CIWA Score Nausea/Vomitin-No Nausea/No Vomiting Muscle Tremors: 3 Anxiety: 2 Agitation: 3 Paroxysmal Sweats: 2 Orientation: 0-Oriented Tacttile Disturbances: 0-None Auditory Disturbances: 0-None Visual Disturbances: 0-None Headache: 0-None Present CIWA-Ar Total Score: 10 B[facility] Progress Note (SOAP) Subjective: sweats shakes body aches interrupted sleep Objective: 01/23/19 10:22 Vital Signs Temperature 98.1 F 01/23/19 09:21 Pulse Rate 83 01/23/19 09:21 Respiratory Rate 18 01/23/19 09:21 Blood Pressure 156/89 01/23/19 09:21 O2 Sat by Pulse Oximetry (%) labs noted aaox3 ambulating no acute distress Assessment: 01/23/19 10:23 withdrawals Plan: continue detox increase fluids
[2019-01-23] MEDS: THIAMINE HCL 100 MG TABLET (FP) PO SCH (22:01)
[2019-01-23] MEDS: MELATONIN 5 MG TABLETS PO PRN (22:02)
[2019-01-24] MEDS ORDERED: LORazepam 0.5 MG TABLET PO PRN
[2019-01-24] MEDS: hydrOXYzine PAMOATE 25 MG CAPSULE (FP) PO PRN (03:01)
[2019-01-24] MEDS: LORazepam 0.5 MG TABLET PO SCH ×2 (05:40→10:21)
[2019-01-24] MEDS: PRENATAL VITAMINS W/ FOLIC ACID TABLET (FP) PO SCH (10:21)
[2019-01-24] MEDS: amLODIPine BESYLATE 5 MG TABLET (FP) PO SCH (10:21)
--- NOTE | 2019-01-24 11:37 | PN ---
S CIWA - CIWA Score Nausea/Vomitin-No Nausea/No Vomiting Muscle Tremors: 2 Anxiety: 1-Mildly Anxious Agitation: 1-Slight > Activity Paroxysmal Sweats: No Perspiration Orientation: 0-Oriented Tacttile Disturbances: 0-None Auditory Disturbances: 0-None Visual Disturbances: 0-None Headache: 0-None Present CIWA-Ar Total Score: 4 BHS Progress Note (SOAP) Subjective: feeling much better little anxiety Objective: 01/24/19 11:36 Vital Signs Temperature 97.5 F L 01/24/19 09:36 Pulse Rate 83 01/24/19 09:36 Respiratory Rate 18 01/24/19 09:36 Blood Pressure 134/74 01/24/19 09:36 O2 Sat by Pulse Oximetry (%) aaox3 ambulating no acute distress Assessment: 01/24/19 11:36 mild withdrawals Plan: continue detox d/c in am
[2019-01-24 13:14] VITALS: BP 141/79; PULSE 92; TEMP 98.1
--- NOTE | 2019-01-24 14:29 | DS ---
[facility] Detox Discharge Summary Admission Date: 01/21/19 Discharge Date: 01/24/19 - History Present History: Alcohol Dependence - Physical Exam Results Vital Signs: Vital Signs Temperature 98.1 F 01/24/19 13:13 Pulse Rate 92 H 01/24/19 13:13 Respiratory Rate 20 01/24/19 13:13 Blood Pressure 141/79 01/24/19 13:13 O2 Sat by Pulse Oximetry (%) Pertinent Admission Physical Exam Findings: Vital Signs Temperature 98.1 F 01/24/19 13:13 Pulse Rate 92 H 01/24/19 13:13 Respiratory Rate 01/24/19 13:13 Blood Pressure 141/79 01/24/19 13:13 O2 Sat by Pulse Oximetry (%) aaox3 ambulating no acute distress - Treatment Hospital Course: Detox Protocol Followed, Detoxed Safely, Responded well, Discharged Condition Good, Rehab Referral Accepted - Medication Discharge Medications: Ambulatory Orders Albuterol Sulfate Inhaler - [Ventolin HFA Inhaler -] 2 inh PO PRN PRN #1 inhaler 12/22/18 Amlodipine Besylate [Norvasc -] 5 mg PO DAILY #14 tablet 12/22/18 - Diagnosis (1) Hypertension Current Visit: No Status: Acute Qualifiers: Hypertension type: unspecified Qualified Code(s): I10 - Essential (primary ) hypertension (2) Alcohol dependence with withdrawal Current Visit: No Status: Chronic Qualifiers: Complication of substance-induced condition: uncomplicated Qualified Code(s ): F10.230 - Alcohol dependence with withdrawal, uncomplicated (3) Asthma Current Visit: No Status: Chronic Qualifiers: Asthma severity: mild Asthma persistence: unspecified Asthma complication type: unspecified Qualified Code(s): J45.909 - Unspecified asthma , uncomplicated - AMA Did Patient Leave Against Medical Advice: No
[2019-01-25] MEDS ORDERED: LORazepam 0.5 MG TABLET PO ONE (05:00)
== END 2019-01-24 15:38 | disposition home or self-care (01) | DRG 775 ==
LOC: YASAS 10:50 → Y6N 12:42
PROVIDERS: ADMIT Allergy & Immunology; ATTEND Allergy & Immunology
PROC: HZ2ZZZZ Detoxification Services for Substance Abuse Treatment (ICD-10-PCS; principal; 2019-01-21)
DX: F10.230 Alcohol dependence with withdrawal, uncomplicated (principal); F12.10 Cannabis abuse, uncomplicated; I10 Essential (primary) hypertension; Z87.891 Personal history of nicotine dependence
CPT/HCPCS: 36415; 80053; 85027; 86593; J0735

== ENCOUNTER 2019-02-14 08:28 | Inpatient (IN) | payer OTHER ==
[2019-02-14 09:27] VITALS: BMI 32.1
--- NOTE | 2019-02-14 09:58 | HP ---
CIWA Score Nausea/Vomitin Muscle Tremors: 3 Anxiety: 3 Agitation: 3 Paroxysmal Sweats: 1-Minimal Palms Moist Orientation: 0-Oriented Tacttile Disturbances: 1-Very Mild Itch/Numbness Auditory Disturbances: 0-None Visual Disturbances: 0-None Headache: 2-Mild CIWA-Ar Total Score: 15 - Admission Criteria OASAS Guidelines: Admission for Medically Managed Detox: Requires at least one of the followin. CIWA greater than 12 2. Seizures within the past 24 hours 3. Delirium tremens within the past 24 hours 4. Hallucinations within the past 24 hours 5. Acute intervention needed for co occurring medical disorder 6. Acute intervention needed for co occurring psychiatric disorder 7. Severe withdrawal that cannot be handled at a lower level of care (continued vomiting, continued diarrhea, abnormal vital signs) requiring intravenous medication and/or fluids 8. Admitting History and Physical - Admission Chief Complaint: i need help to stop drinking alcohol History Source: Patient Limitations to Obtaining History: No Limitations - Past Medical History Cardiovascular: Yes: HTN Pulmonary: Yes: Asthma - Past Surgical History Past Surgical History: Yes: None - Smoking History Smoking history: Former smoker Have you smoked in the past 12 months: Yes Aproximately how many cigarettes per day: 10 If you are a former smoker, when did you quit?: 6 months ago - Alcohol/Substance Use Hx Alcohol Use: Yes (nips of vodka daily) Number of Drinks Daily: 50 History of Substance Use: reports: Cocaine Date of Last Use: 12/17/18 - Social History Usual Living Arrangement: Yes: Other (with friend) ADL: 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 unemployed,former smoker,. for inpatient detox,[facility] Admission [facility] Chief Complaint: i need help to stop drinking alcohol Allergies/Adverse Reactions: Allergies Allergy/AdvReac Type Severity Reaction Status Date / Time No Known Allergies Allergy Verified 02/14/19 08:48 History of Present Illness: this 33 years old male iwth alcohol dependence seeking detox,withdrawal symptom, multiple admissions in the past but keep relapsing ashma hypertension former smoker denied seizure no syncope longest sobriety 2 years plan for rehab after detox - Ebola screening Have you traveled outside of the country in the last 21 days: No Have you had contact with anyone from an Ebola affected area: No Do you have a fever: No - Review of Systems Constitutional: Loss of Appetite, Malaise, Night Sweats, Changes in sleep, Weakness EENT: reports: Nose Congestion Respiratory: reports: Cough (asthma) Cardiac: reports: No Symptoms Reported GI: reports: Diarrhea, Nausea, Indigestion, Abdominal cramping : reports: No Symptoms Reported Musculoskeletal: reports: Back Pain, Muscle Pain Integumentary: reports: Dryness Neuro: reports: Headache, Tremors Endocrine: reports: No Symptoms Reported Hematology: reports: No Symptoms Reported Psychiatric: reports: No Sypmtoms Reported, Judgement Intact, Mood/Affect Appropiate, Orientated x3 Patient History - Patient Medical History Hx Anemia: No Hx Asthma: Yes (on albuterol inhaler) Hx Chronic Obstructive Pulmonary Disease (COPD): No Hx Cancer: No Hx Cardiac Disorders: No Hx Congestive Heart Failure: No Hx Hypertension: No Hx Hypercholesterolemia: No Hx Pacemaker: No HX Cerebrovascular Accident: No Hx Seizures: No Hx Dementia: No Hx Diabetes: No Hx Gastrointestinal Disorders: No Hx Liver Disease: No Hx Genitourinary Disorders: No Hx Sexually Transmitted Disorders: No Hx Renal Disease (ESRD): No Hx Thyroid Disease: No Hx Human Immunodeficiency Virus (HIV): No (last 2018) Hx Hepatitis C: No Hx Depression: No Hx Suicide Attempt: No Hx Bipolar Disorder: No Hx Schizophrenia: No Other Medical History: no suicidal,no homicidal - Patient Surgical History Past Surgical History: No Hx Neurologic Surgery: No Hx Cataract Extraction: No Hx Cardiac Surgery: No Hx Lung Surgery: No Hx Breast Surgery: No Hx Breast Biopsy: No Hx Abdominal Surgery: No Hx Appendectomy: No Hx Cholecystectomy: No Hx Genitourinary Surgery: No Hx Section: No Hx Orthopedic Surgery: No Anesthesia Reaction: No - PPD History Previous Implant?: Yes Documented Results: Negative w/proof Implanted On Prior R Admission?: Yes Date: 12/19/18 Results: negative PPD to be Administered?: No - Smoking Cessation Smoking history: Former smoker Have you smoked in the past 12 months: Yes Aproximately how many cigarettes per day: 10 If you are a former smoker, when did you quit?: 6 months ago Hx Chewing Tobacco Use: No Initiated information on smoking cessation: Yes 'Breaking Loose' booklet given: 02/14/19 - Substance & Tx. History Hx Alcohol Use: Yes Hx Substance Use: Yes Substance Use Type: Alcohol, Marijuana Hx Substance Use Treatment: Yes ([facility] 01/21/19 to 01/24/19) - Substances abused Alcohol Substance route: Oral Frequency: Daily Amount used: 2 pints of vodka & 2 of 25 ozs of beer Age of first use: 21 Date of last use: 02/14/19 Marijuana/Hashish Substance route: Smoking Frequency: 1-3 times last 30 days Amount used: 2 joints Age of first use: 14 Date of last use: 02/13/19 Admission Physical Exam [facility] - Vital Signs Vital Signs: Vital Signs - 24 hr 02/14/19 08:47 Temperature 98.3 F Pulse Rate 112 H Respiratory 20 Rate Blood Pressure 169/94 - Physical General Appearance: Yes: Moderate Distress, Tremorous, Irritable, Sweating, Anxious HEENTM: Yes: Normal ENT Inspection, JUID, Pharynx Normal Respiratory: Yes: Wheezing Neck: Yes: Within Normal Limits, Supple, Trachea in good position Breast: Yes: Within Normal Limits Cardiology: Yes: Within Normal Limits, Regular Rhythm, Regular Rate, S1, S2 Abdominal: Yes: Within Normal Limits, Normal Bowel Sounds, Non Tender, Flat, Soft Back: Yes: Muscle Spasm Musculoskeletal: Yes: Back pain, Muscle Pain Extremities: Yes: Tremors Neurological: Yes: advertisement distributor II-XII NML intact, Fully Oriented, Alert, Motor Strength 5/5 Integumentary: Yes: Dry Lymphatic: Yes: Within Normal Limits - Diagnostic (1) Alcohol dependence with withdrawal Current Visit: No Status: Chronic Qualifiers: Complication of substance-induced condition: uncomplicated Qualified Code(s ): F10.230 - Alcohol dependence with withdrawal, uncomplicated (2) Anxiety Current Visit: Yes Status: Acute (3) Nicotine dependence Current Visit: Yes Status: Acute (4) Asthma Current Visit: No Status: Chronic Qualifiers: Asthma severity: mild Asthma persistence: unspecified Asthma complication type: unspecified Qualified Code(s): J45.909 - Unspecified asthma , uncomplicated Cleared for Admission [facility] - Detox or Rehab [facility] Level of Care: Medically Managed Detox Regimen/Protocol: Librium Breathalyzer - Breathalyzer Breathalyzer: 0.217 Urine Drug Screen - Test Device Lot number: [id number] Expiration date: 08/19/20 - Control Is test valid?: Yes - Results Drug screen NEGATIVE: No Urine drug screen results: THC-Marijuana, BZO-Benzodiazepines Inpatient Rehab Admission - Rehab Decision to Admit Inpatient rehab admission?: No
[2019-02-14] MEDS ORDERED: MAGNESIUM CITRATE 300 ML BOTTLE PO PRN (10:09)
[2019-02-14] MEDS ORDERED: MAGNESIUM HYDROX 2400MG/30ML ORAL SUSPENSION 30 ML CUP PO PRN (10:09)
[2019-02-14] MEDS ORDERED: METHOCARBAMOL 500 MG TABLET PO PRN (10:09)
[2019-02-14] MEDS ORDERED: MAG HYDROX/AL HYDROX/SIMETH 30 ML UNIT-DOSE CUP PO PRN (10:09)
[2019-02-14] MEDS ORDERED: IBUPROFEN 400 MG TABLET (FP) PO PRN (10:09)
[2019-02-14] MEDS ORDERED: BISMUTH SUBSALICYLATE 262 MG/15 ML BTL PO PRN (10:09)
[2019-02-14] MEDS ORDERED: ACETAMINOPHEN 325 MG TABLET (FP) PO PRN ×2 (10:09)
[2019-02-14] MEDS ORDERED: MENTHOL/PHENOL 1 EACH UD MM PRN (10:09)
[2019-02-14] MEDS ORDERED: chlordiazePOXIDE HCL 25 MG CAPSULE PO PRN (10:09)
[2019-02-14] MEDS ORDERED: ALBUTEROL SO4 8 GM HFA INHALER IH PRN (10:12)
[2019-02-14] MEDS: chlordiazePOXIDE HCL 25 MG CAPSULE PO SCH ×3 (10:57→22:38)
[2019-02-14] MEDS: amLODIPine BESYLATE 5 MG TABLET (FP) PO SCH (10:57)
[2019-02-14 16:07] LABS: HEMATOCRIT 46.9 % (35.4-49); HEMOGLOBIN 15.8 GM/dL (11.7-16.9); MCH 31.4 pg (25.7-33.7); MCHC 33.6 g/dl (32.0-35.9); MEAN CELL VOLUME 93.4 fl (80-96); MEAN PLT VOLUME 10.4 fl (7.5-11.1); PLATELET COUNT 191 K/MM3 (134-434); RBC 5.02 M/mm3 (4.00-5.60); RDW 14.1 % (11.9-15.9); WHITE BLOOD COUNT 5.7 K/mm3 (4.0-10.0)
[2019-02-14 16:31] LABS: ALBUMIN 4.4 g/dl (3.4-5.0); ALK PHOS 101 U/L (45-117); ANION GAP 12 MMOL/L (8-16); BILIRUBIN,TOTAL 1.4 mg/dL (0.2-1); CALCIUM 9.4 mg/dL (8.5-10.1); CHLORIDE 92 mmol/L (98-107); CO2 27 mmol/L (21-32); CREATININE 0.8 mg/dL (0.55-1.3); GLUCOSE,RANDOM 112 mg/dL (74-106); SGOT/AST 188 U/L (15-37); SGPT/ALT 156 U/L (13-61); SODIUM 132 mmol/L (136-145); TOT PROT 8.4 g/dl (6.4-8.2)
[2019-02-14] MEDS: hydrOXYzine PAMOATE 25 MG CAPSULE (FP) PO PRN (17:56)
[2019-02-14] MEDS: THIAMINE HCL 100 MG TABLET (FP) PO SCH (22:38)
[2019-02-14] MEDS: MELATONIN 5 MG TABLETS PO PRN (22:38)
[2019-02-14 23:46] LABS: BLOOD UREA NITROGEN < 1.0 mg/dL (7-18); POTASSIUM 2.9 mmol/L (3.5-5.1)
[2019-02-14] MEDS ORDERED: POTASSIUM CHLORIDE TABS 20 MEQ TABLET.ER (FP) PO ONE (23:52)
--- NOTE | 2019-02-14 23:59 | PN ---
S Progress Note Note: Patient w/ a hx hypokalemia and low BUN. Todays values are even lower. BUN: 12/17 = 3.3; 12/19 = 3.5. Current BUN <1.0 Potassium: 12/17 = 4.2; 12/19 = 5.0. - Current K+ = 2.9 Plan: KCL 40 meq PO now and 20 meq PO BID Repeat metabolic panel in a.m.
[2019-02-15] MEDS: hydrOXYzine PAMOATE 25 MG CAPSULE (FP) PO PRN (03:02)
[2019-02-15] MEDS: chlordiazePOXIDE HCL 25 MG CAPSULE PO SCH ×4 (05:58→22:04)
[2019-02-15] MEDS ORDERED: AMMONIUM LACTATE 12% LOTION 225 GM BOTTLE TP SCH (10:30)
[2019-02-15 10:35] LABS: ALBUMIN 3.5 g/dl (3.4-5.0); BILIRUBIN,TOTAL 1.6 mg/dL (0.2-1); CALCIUM 9.1 mg/dL (8.5-10.1); CREATININE 0.8 mg/dL (0.55-1.3); POTASSIUM 3.2 mmol/L (3.5-5.1); TOT PROT 7.2 g/dl (6.4-8.2)
[2019-02-15] MEDS: amLODIPine BESYLATE 5 MG TABLET (FP) PO SCH (10:35)
--- NOTE | 2019-02-15 10:35 | PN ---
S CIWA - CIWA Score Nausea/Vomitin-No Nausea/No Vomiting Muscle Tremors: 3 Anxiety: 3 Agitation: 3 Paroxysmal Sweats: 3 Orientation: 0-Oriented Tacttile Disturbances: 0-None Auditory Disturbances: 0-None Visual Disturbances: 0-None Headache: 0-None Present CIWA-Ar Total Score: 12 [facility] Progress Note (SOAP) Subjective: sweats shakes interrupted sleep body aches Objective: 02/15/19 11:07 Vital Signs Temperature 98.1 F 02/15/19 09:19 Pulse Rate 99 H 02/15/19 09:19 Respiratory Rate 18 02/15/19 09:19 Blood Pressure 123/98 02/15/19 09:19 O2 Sat by Pulse Oximetry (%) Laboratory Tests 02/14/19 02/14/19 02/15/19 10:40 10:40 07:40 WBC 5.7 RBC 5.02 Hgb 15.8 Hct 46.9 MCV 93.4 MCH 31.4 MCHC 33.6 RDW 14.1 Plt Count 191 D MPV 10.4 Sodium 132 L 136 Potassium 2.9 L* 3.2 L Chloride 92 L 98 Carbon Dioxide 27 30 Anion Gap 12 8 BUN < 1.0 L* 2.3 L* Creatinine 0.8 0.8 Est GFR (CKD-EPI)AfAm 136.03 136.03 Est GFR (CKD-EPI)NonAf 117.37 117.37 Random Glucose 112 H 85 Calcium 9.4 9.1 Total Bilirubin 1.4 H 1.6 H AST 188 H 161 H ALT 156 H 129 H Alkaline Phosphatase 101 82 Total Protein 8.4 H 7.2 Albumin 4.4 3.5 labs noted aaox3 ambulating no acute distress increase fluids repeat labs Assessment: 02/15/19 11:09 withdrawal sx Plan: continue detox increase fluids
[2019-02-15] MEDS: PRENATAL VITAMINS W/ FOLIC ACID TABLET (FP) PO SCH (10:36)
[2019-02-15] MEDS: POTASSIUM CHLORIDE TABS 20 MEQ TABLET.ER (FP) PO SCH ×2 (10:36→22:04)
[2019-02-15 10:39] LABS: BLOOD UREA NITROGEN 2.3 mg/dL (7-18)
[2019-02-15] MEDS: THIAMINE HCL 100 MG TABLET (FP) PO SCH (22:04)
[2019-02-15] MEDS: MELATONIN 5 MG TABLETS PO PRN (22:04)
[2019-02-16] MEDS: hydrOXYzine PAMOATE 25 MG CAPSULE (FP) PO PRN (01:06)
[2019-02-16] MEDS: chlordiazePOXIDE HCL 25 MG CAPSULE PO SCH ×4 (05:21→22:15)
[2019-02-16] MEDS: amLODIPine BESYLATE 5 MG TABLET (FP) PO SCH (10:24)
[2019-02-16] MEDS: PRENATAL VITAMINS W/ FOLIC ACID TABLET (FP) PO SCH (10:24)
[2019-02-16] MEDS: POTASSIUM CHLORIDE TABS 20 MEQ TABLET.ER (FP) PO SCH ×2 (10:24→22:15)
[2019-02-16 13:25] LABS: ALBUMIN 3.5 g/dl (3.4-5.0); BILIRUBIN,TOTAL 1.4 mg/dL (0.2-1); CALCIUM 9.4 mg/dL (8.5-10.1); CREATININE 0.7 mg/dL (0.55-1.3); POTASSIUM 3.5 mmol/L (3.5-5.1)
[2019-02-16 13:42] LABS: BLOOD UREA NITROGEN 2.5 mg/dL (7-18)
--- NOTE | 2019-02-16 13:50 | PN ---
S CIWA - CIWA Score Nausea/Vomitin-No Nausea/No Vomiting Muscle Tremors: None Anxiety: 3 Agitation: 0-Normal Activity Paroxysmal Sweats: 1-Minimal Palms Moist Orientation: 0-Oriented Tacttile Disturbances: 2-Mild Itch/Numbness/Burn Auditory Disturbances: 0-None Visual Disturbances: 2-Mild Sensitivity Headache: 0-None Present CIWA-Ar Total Score: 8 BHS Progress Note (SOAP) Subjective: Anxious, Interrupted Sleep, Fatigue. Objective: PATIENT A & O X 3, OBSERVED AMBULATING ON DETOX UNIT UNASSISTED. IN NO ACUTE DISTRESS. 02/16/19 13:44 Vital Signs Temperature 97.7 F 02/16/19 13:24 Pulse Rate 103 H 02/16/19 13:24 Respiratory Rate 20 02/16/19 13:24 Blood Pressure 127/88 02/16/19 13:24 O2 Sat by Pulse Oximetry (%) Laboratory Tests 02/14/19 02/14/19 02/14/19 10:40 10:40 10:40 WBC 5.7 RBC 5.02 Hgb 15.8 Hct 46.9 MCV 93.4 MCH 31.4 MCHC 33.6 RDW 14.1 Plt Count 191 D MPV 10.4 Sodium 132 L Potassium 2.9 L* Chloride 92 L Carbon Dioxide 27 Anion Gap 12 BUN < 1.0 L* Creatinine 0.8 Est GFR (CKD-EPI)AfAm 136.03 Est GFR (CKD-EPI)NonAf 117.37 Random Glucose 112 H Calcium 9.4 Total Bilirubin 1.4 H AST 188 H ALT 156 H Alkaline Phosphatase 101 Total Protein 8.4 H Albumin 4.4 RPR Titer Nonreactive 02/15/19 02/16/19 07:40 07:30 WBC RBC Hgb Hct MCV MCH MCHC RDW Plt Count MPV Sodium 136 137 Potassium 3.2 L 3.5 Chloride 98 99 Carbon Dioxide 30 28 Anion Gap 8 9 BUN 2.3 L* 2.5 L* Creatinine 0.8 0.7 Est GFR (CKD-EPI)AfAm 136.03 143.71 Est GFR (CKD-EPI)NonAf 117.37 123.99 Random Glucose 85 82 Calcium 9.1 9.4 Total Bilirubin 1.6 H 1.4 H AST 161 H 158 H ALT 129 H 136 H Alkaline Phosphatase 82 83 Total Protein 7.2 7.0 Albumin 3.5 3.5 RPR Titer LABS NOTED. RESULTS OF REPEAT CMP NOTED. K LEVEL NOW NOTED TO BE WITHIN NORMAL RANGE. WILL D /C K-DUR. SLIGHT INCREASE NOTED IN BUN LEVEL. CREATININE ADN GFR LEVELS HAVE BEEN AND STILL ARE WITHIN NORMAL LIMITS. PATIENT DENIES KNOWN HISTORY OF RENAL DISEASE. MILD DECREASES NOTED IN AST, ALT AND IN ALK. PHOS. LEVELS. 02/16/19 13:46 Assessment: 02/16/19 13:45 WITHDRAWAL SYMPTOMS. LOW BUN LEVEL. 02/16/19 13:51 Plan: CONTINUE DETOX. INCREASE DAILY ORAL WATER INTAKE. PATIENT ADVISED TO FOLLOW-UP WITH [facility] AFTER DISCHARGE FROM DETOX FOR MEDICAL ASSESSMENT AND FOR LOW BUN LEVEL NOTED ON DETOX ADMISSION LABORATORY ASSESSMENT. PATIENT VERBALIZED UNDERSTANDING OF RECOMMENDATION. COPIES OF RESULTS OF ALL LABS DRAWN WHILE ADMITTED FOR DETOX GIVEN TO PATIENT AT TIME OF DISCHARGE FROM DETOX UNIT.
[2019-02-16] MEDS: THIAMINE HCL 100 MG TABLET (FP) PO SCH (22:15)
[2019-02-16] MEDS: MELATONIN 5 MG TABLETS PO PRN (22:15)
[2019-02-17] MEDS ORDERED: chlordiazePOXIDE HCL 10 MG CAPSULE PO PRN
[2019-02-17] MEDS: hydrOXYzine PAMOATE 25 MG CAPSULE (FP) PO PRN ×2 (01:07→07:09)
[2019-02-17] MEDS: chlordiazePOXIDE HCL 10 MG CAPSULE PO SCH ×4 (05:57→22:37)
[2019-02-17] MEDS: amLODIPine BESYLATE 5 MG TABLET (FP) PO SCH (10:15)
[2019-02-17] MEDS: PRENATAL VITAMINS W/ FOLIC ACID TABLET (FP) PO SCH (10:15)
--- NOTE | 2019-02-17 14:26 | PN ---
[facility] CIWA - CIWA Score Nausea/Vomitin-No Nausea/No Vomiting Muscle Tremors: 1-None Visible, but [place] Anxiety: 2 Agitation: 2 Paroxysmal Sweats: 2 Orientation: 0-Oriented Tacttile Disturbances: 0-None Auditory Disturbances: 0-None Visual Disturbances: 0-None Headache: 0-None Present CIWA-Ar Total Score: 7 [facility] Progress Note (SOAP) Subjective: Poor sleep. Patient requesting to be discharged tomorrow instead of Monday. Objective: 02/17/19 14:21 Last Vital Signs Temp Pulse Resp BP Pulse Ox 98.6 F 100 H 18 145/94 02/17/19 13:33 02/17/19 13:33 02/17/19 13:33 02/17/19 13:33 Elevated b/p noted: denies HTN, not on medication Laboratory Tests 02/14/19 02/14/19 02/14/19 10:40 10:40 10:40 WBC 5.7 RBC 5.02 Hgb 15.8 Hct 46.9 MCV 93.4 MCH 31.4 MCHC 33.6 RDW 14.1 Plt Count 191 D MPV 10.4 Sodium 132 L Potassium 2.9 L* Chloride 92 L Carbon Dioxide 27 Anion Gap 12 BUN < 1.0 L* Creatinine 0.8 Est GFR (CKD-EPI)AfAm 136.03 Est GFR (CKD-EPI)NonAf 117.37 Random Glucose 112 H Calcium 9.4 Total Bilirubin 1.4 H AST 188 H ALT 156 H Alkaline Phosphatase 101 Total Protein 8.4 H Albumin 4.4 RPR Titer Nonreactive 02/15/19 02/16/19 07:40 07:30 WBC RBC Hgb Hct MCV MCH MCHC RDW Plt Count MPV Sodium 136 137 Potassium 3.2 L 3.5 Chloride 98 99 Carbon Dioxide 30 28 Anion Gap 8 9 BUN 2.3 L* 2.5 L* Creatinine 0.8 0.7 Est GFR (CKD-EPI)AfAm 136.03 143.71 Est GFR (CKD-EPI)NonAf 117.37 123.99 Random Glucose 85 82 Calcium 9.1 9.4 Total Bilirubin 1.6 H 1.4 H AST 161 H 158 H ALT 129 H 136 H Alkaline Phosphatase 82 83 Total Protein 7.2 7.0 Albumin 3.5 3.5 RPR Titer Labs reviewed: bun 2.5 (low), AST 158 >>161 >>188; ALT 136 >>129 >>156 (high); total bilirubin 1.4 (high) Assessment: 02/17/19 14:24 Withdrawal sxs Noted with elevated LFTs Plan: Continue detox Encouraged PO water intake Unable to discharge patient tomorrow due to abnormal lab results which must be repeated and addressed along with further lab testings below. Elevated LFTs: discontinue bmp, ordered for labs in AM: CMP, hepatitis panel A&B , hepatitis C PCR, PT/INR to rule out acute liver failure; patient is presently asymptomatic for liver failure but does chronic alcoholism.
[2019-02-17] MEDS: THIAMINE HCL 100 MG TABLET (FP) PO SCH (22:36)
[2019-02-17] MEDS: MELATONIN 5 MG TABLETS PO PRN (22:37)
[2019-02-18] MEDS: hydrOXYzine PAMOATE 25 MG CAPSULE (FP) PO PRN ×2 (01:46→08:31)
[2019-02-18] MEDS ORDERED: chlordiazePOXIDE HCL 10 MG CAPSULE PO SCH (05:00)
[2019-02-18 09:10] VITALS: BP 146/91; PULSE 98; TEMP 97.5
[2019-02-18] MEDS: amLODIPine BESYLATE 5 MG TABLET (FP) PO SCH (10:15)
[2019-02-18] MEDS: PRENATAL VITAMINS W/ FOLIC ACID TABLET (FP) PO SCH (10:15)
[2019-02-18 10:46] LABS: ALBUMIN 3.4 g/dl (3.4-5.0); BILIRUBIN,TOTAL 0.8 mg/dL (0.2-1); CREATININE 0.7 mg/dL (0.55-1.3); POTASSIUM 3.9 mmol/L (3.5-5.1)
[2019-02-18 10:47] LABS: INR 0.83 (0.83-1.09); PROTHROMBIN TIME (PATIENT) 9.8 SEC (9.7-13.0)
[2019-02-18 10:49] LABS: BLOOD UREA NITROGEN 2.4 mg/dL (7-18)
--- NOTE | 2019-02-18 11:28 | PN ---
[facility] CI[facility] - CIWA Score Nausea/Vomitin-No Nausea/No Vomiting Muscle Tremors: 1-None Visible, but [place] Anxiety: 0-No Anxiety, at Ease Agitation: 1-Slight > Activity Paroxysmal Sweats: No Perspiration Orientation: 0-Oriented Tacttile Disturbances: 0-None Auditory Disturbances: 0-None Visual Disturbances: 0-None Headache: 0-None Present CIWA-Ar Total Score: 2 [facility] Progress Note (SOAP) Subjective: alert,no complaint Objective: 02/18/19 11:10 Vital Signs Temperature 97.5 F L 02/18/19 09:10 Pulse Rate 98 H 02/18/19 09:10 Respiratory Rate 18 02/18/19 09:10 Blood Pressure 146/91 02/18/19 09:10 O2 Sat by Pulse Oximetry (%) 02/18/19 11:10 Laboratory Last Values WBC 5.7 K/mm3 (4.0-10.0) 02/14/19 10:40 RBC 5.02 M/mm3 (4.00-5.60) 02/14/19 10:40 Hgb 15.8 GM/dL (11.7-16.9) 02/14/19 10:40 Hct 46.9 % (35.4-49) 02/14/19 10:40 MCV 93.4 fl (80-96) 02/14/19 10:40 MCH 31.4 pg (25.7-33.7) 02/14/19 10:40 MCHC 33.6 g/dl (32.0-35.9) 02/14/19 10:40 RDW 14.1 % (11.9-15.9) 02/14/19 10:40 Plt Count 191 K/MM3 (134-434) D 02/14/19 10:40 MPV 10.4 fl (7.5-11.1) 02/14/19 10:40 PT with INR 9.80 SEC (9.7-13.0) 02/18/19 07:00 INR 0.83 (0.83-1.09) 02/18/19 07:00 Sodium 139 mmol/L (136-145) 02/18/19 07:00 Potassium 3.9 mmol/L (3.5-5.1) 02/18/19 07:00 Chloride 107 mmol/L (98-107) 02/18/19 07:00 Carbon Dioxide 26 mmol/L (21-32) 02/18/19 07:00 Anion Gap 7 MMOL/L (8-16) L 02/18/19 07:00 BUN 2.4 mg/dL (7-18) L* 02/18/19 07:00 Creatinine 0.7 mg/dL (0.55-1.3) 02/18/19 07:00 Est GFR (CKD-EPI)AfAm 143.71 02/18/19 07:00 Est GFR (CKD-EPI)NonAf 123.99 02/18/19 07:00 Random Glucose 106 mg/dL (74-106) 02/18/19 07:00 Calcium 9.0 mg/dL (8.5-10.1) 02/18/19 07:00 Total Bilirubin 0.8 mg/dL (0.2-1) 02/18/19 07:00 AST 226 U/L (15-37) H 02/18/19 07:00 ALT 194 U/L (13-61) H 02/18/19 07:00 Alkaline Phosphatase 73 U/L (45-117) 02/18/19 07:00 Total Protein 7.0 g/dl (6.4-8.2) 02/18/19 07:00 Albumin 3.4 g/dl (3.4-5.0) 02/18/19 07:00 RPR Titer Nonreactive (NONREACTIVE) 02/14/19 10:40 Assessment: 02/18/19 11:12 detox completed,no withdrawal symptom Plan: patient is stable for discharged,persistent low bun and abnormal liver enzymes with elevation of alt,ast,alkaline phosphatase patient is aware and understood, he will follow up with his own PMD this coming week for follow up,advise life style change,no alcohol,no tylenol, patient understood.left the unit instable condition,labs test privided for patient
--- NOTE | 2019-02-18 11:39 | DS ---
[facility] Detox Discharge Summary Admission Date: 02/14/19 Discharge Date: 02/18/19 - History Present History: Alcohol Dependence Additional Comments: patient is awared of abnormal liver enzymes,he will see his PMD for follow up this coming week and understood,important of life style change, no alcohol,no tylenol or go to er if not feeling well Pertinent Past History: asthma nicotine dependence - Physical Exam Results Vital Signs: Vital Signs Temperature 97.5 F L 02/18/19 09:10 Pulse Rate 98 H 02/18/19 09:10 Respiratory Rate 18 02/18/19 09:10 Blood Pressure 146/91 02/18/19 09:10 O2 Sat by Pulse Oximetry (%) Pertinent Admission Physical Exam Findings: withdrawal signs and symptom Laboratory Last Values WBC 5.7 K/mm3 (4.0-10.0) 02/14/19 10:40 RBC 5.02 M/mm3 (4.00-5.60) 02/14/19 10:40 Hgb 15.8 GM/dL (11.7-16.9) 02/14/19 10:40 Hct 46.9 % (35.4-49) 02/14/19 10:40 MCV 93.4 fl (80-96) 02/14/19 10:40 MCH 31.4 pg (25.7-33.7) 02/14/19 10:40 MCHC 33.6 g/dl (32.0-35.9) 02/14/19 10:40 RDW 14.1 % (11.9-15.9) 02/14/19 10:40 Plt Count 191 K/MM3 (134-434) D 02/14/19 10:40 MPV 10.4 fl (7.5-11.1) 02/14/19 10:40 PT with INR 9.80 SEC (9.7-13.0) 02/18/19 07:00 INR 0.83 (0.83-1.09) 02/18/19 07:00 Sodium 139 mmol/L (136-145) 02/18/19 07:00 Potassium 3.9 mmol/L (3.5-5.1) 02/18/19 07:00 Chloride 107 mmol/L (98-107) 02/18/19 07:00 Carbon Dioxide 26 mmol/L (21-32) 02/18/19 07:00 Anion Gap 7 MMOL/L (8-16) L 02/18/19 07:00 BUN 2.4 mg/dL (7-18) L* 02/18/19 07:00 Creatinine 0.7 mg/dL (0.55-1.3) 02/18/19 07:00 Est GFR (CKD-EPI)AfAm 143.71 02/18/19 07:00 Est GFR (CKD-EPI)NonAf 123.99 02/18/19 07:00 Random Glucose 106 mg/dL (74-106) 02/18/19 07:00 Calcium 9.0 mg/dL (8.5-10.1) 02/18/19 07:00 Total Bilirubin 0.8 mg/dL (0.2-1) 02/18/19 07:00 AST 226 U/L (15-37) H 02/18/19 07:00 ALT 194 U/L (13-61) H 02/18/19 07:00 Alkaline Phosphatase 73 U/L (45-117) 02/18/19 07:00 Total Protein 7.0 g/dl (6.4-8.2) 02/18/19 07:00 Albumin 3.4 g/dl (3.4-5.0) 02/18/19 07:00 RPR Titer Nonreactive (NONREACTIVE) 02/14/19 10:40 - Treatment Hospital Course: Detox Protocol Followed, Detoxed Safely, Responded well, Discharged Condition Good Patient has Accepted a Rehab Referral to: declined - Medication Discharge Medications: Ambulatory Orders Albuterol Sulfate Inhaler - [Ventolin HFA Inhaler -] 2 inh PO PRN PRN #1 inhaler 12/22/18 Amlodipine Besylate [Norvasc -] 5 mg PO DAILY #14 tablet 12/22/18 - Diagnosis (1) Alcohol dependence with withdrawal Current Visit: No Status: Chronic Qualifiers: Complication of substance-induced condition: uncomplicated Qualified Code(s ): F10.230 - Alcohol dependence with withdrawal, uncomplicated (2) Anxiety Current Visit: Yes Status: Acute (3) Nicotine dependence Current Visit: Yes Status: Acute (4) Asthma Current Visit: No Status: Chronic Qualifiers: Asthma severity: mild Asthma persistence: unspecified Asthma complication type: unspecified Qualified Code(s): J45.909 - Unspecified asthma , uncomplicated (5) Abnormal liver enzymes Current Visit: Yes Status: Acute - AMA Did Patient Leave Against Medical Advice: No
[2019-02-19] MEDS ORDERED: chlordiazePOXIDE HCL 10 MG CAPSULE PO ONE (05:00)
[2019-02-20 00:07] LABS: HEP B CORE AB, TOT Negative (Negative)
== END 2019-02-18 11:40 | disposition home or self-care (01) | DRG 775 ==
LOC: YASAS 08:28 → Y6N 10:25
PROVIDERS: ADMIT Allergy & Immunology; ATTEND Allergy & Immunology
PROC: HZ2ZZZZ Detoxification Services for Substance Abuse Treatment (ICD-10-PCS; principal; 2019-02-14)
DX: F10.230 Alcohol dependence with withdrawal, uncomplicated (principal); F17.210 Nicotine dependence, cigarettes, uncomplicated; F41.9 Anxiety disorder, unspecified; I10 Essential (primary) hypertension; J45.909 Unspecified asthma, uncomplicated; R94.5 Abnormal results of liver function studies; R79.89 Other specified abnormal findings of blood chemistry; E87.6 Hypokalemia; Z56.0 Unemployment, unspecified
CPT/HCPCS: 36415; 80053; 85027; 85610; 86593; 86704; 86706; 86707; 86708; 86709; 87340; 87522

== ENCOUNTER 2019-03-24 09:58 | Inpatient (IN) | payer OTHER ==
[2019-03-24 10:31] VITALS: BMI 31.1
--- NOTE | 2019-03-24 10:43 | HP ---
CIWA Score Nausea/Vomitin-No Nausea/No Vomiting Muscle Tremors: None Anxiety: 0-No Anxiety, at Ease Agitation: 1-Slight > Activity Paroxysmal Sweats: No Perspiration Orientation: 0-Oriented Tacttile Disturbances: 0-None Auditory Disturbances: 0-None Visual Disturbances: 0-None Headache: 1-Very Mild CIWA-Ar Total Score: 2 - Admission Criteria OASAS Guidelines: Admission for Medically Managed Detox: Requires at least one of the followin. CIWA greater than 12 2. Seizures within the past 24 hours 3. Delirium tremens within the past 24 hours 4. Hallucinations within the past 24 hours 5. Acute intervention needed for co occurring medical disorder 6. Acute intervention needed for co occurring psychiatric disorder 7. Severe withdrawal that cannot be handled at a lower level of care (continued vomiting, continued diarrhea, abnormal vital signs) requiring intravenous medication and/or fluids 8. 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 male requesting detox from etoh use , reports 10-15 nips /day since Nov 2018 , latest use today was taken to [facility] due to intoxication aidee paperwork indicating same, was given Librium around 3 am per pt . reports tremors if not drinking , denies seizures or blackouts . tobacco - denies cannabis - occasional use PMHX : htn not on meds . Exam Limitations: No Limitations - Review of Systems Constitutional: No Symptoms Reported EENT: reports: No Symptoms Reported Respiratory: reports: No Symptoms reported Cardiac: reports: No Symptoms Reported GI: reports: No Symptoms Reported : reports: No Symptoms Reported Musculoskeletal: reports: No Symptoms Reported Integumentary: reports: No Symptoms Reported Neuro: reports: See HPI Endocrine: reports: No Symptoms Reported Hematology: reports: No Symptoms Reported Psychiatric: reports: Orientated x3 Patient History - Patient Medical History Hx Anemia: No Hx Asthma: Yes (on albuterol inhaler) Hx Chronic Obstructive Pulmonary Disease (COPD): No Hx Cancer: No Hx Cardiac Disorders: No Hx Congestive Heart Failure: No Hx Hypertension: No Hx Hypercholesterolemia: No Hx Pacemaker: No HX Cerebrovascular Accident: No Hx Seizures: No Hx Dementia: No Hx Diabetes: No Hx Gastrointestinal Disorders: No Hx Liver Disease: No Hx Genitourinary Disorders: No Hx Sexually Transmitted Disorders: No Hx Renal Disease (ESRD): No Hx Thyroid Disease: No Hx Human Immunodeficiency Virus (HIV): No (last 2018) Hx Hepatitis C: No Hx Depression: No Hx Suicide Attempt: No Hx Bipolar Disorder: No Hx Schizophrenia: No - Patient Surgical History Past Surgical History: No Hx Neurologic Surgery: No Hx Cataract Extraction: No Hx Cardiac Surgery: No Hx Lung Surgery: No Hx Breast Surgery: No Hx Breast Biopsy: No Hx Abdominal Surgery: No Hx Appendectomy: No Hx Cholecystectomy: No Hx Genitourinary Surgery: No Hx Section: No Hx Orthopedic Surgery: No Anesthesia Reaction: No - PPD History Date: 12/19/18 Results: negative - Smoking Cessation Smoking history: Former smoker Have you smoked in the past 12 months: Yes Aproximately how many cigarettes per day: 10 If you are a former smoker, when did you quit?: 6 months ago Hx Chewing Tobacco Use: No Initiated information on smoking cessation: No - Substances abused Alcohol Substance route: Oral Frequency: Daily Amount used: 10-15 nips of vodka Age of first use: 16 Date of last use: 03/24/19 Admission Physical Exam [facility] - Vital Signs Vital Signs: Vital Signs - 24 hr 03/24/19 10:28 Temperature 97.0 F L Pulse Rate 105 H Respiratory 20 Rate Blood Pressure 163/90 - Physical General Appearance: Yes: Mild Distress, Intoxicated HEENTM: Yes: EOMI, Hearing grossly Normal, Normocephalic, Normal Voice Respiratory: Yes: Chest Non-Tender, Lungs Clear, Normal Breath Sounds, No Respiratory Distress, No Accessory Muscle Use Neck: Yes: No masses,lesions,Nodules, Trachea in good position Cardiology: Yes: Regular Rhythm, Regular Rate, S1, S2, Tachycardia Abdominal: Yes: Normal Bowel Sounds, Non Tender, Soft Musculoskeletal: Yes: Gait Steady Extremities: Yes: Normal Range of Motion, Non-Tender Neurological: Yes: Fully Oriented, Alert, Motor Strength 5/5, Normal Mood/Affect Integumentary: Yes: Warm - Diagnostic (1) Alcohol intoxication Current Visit: Yes Status: Acute Qualifiers: Complication of substance-induced condition: uncomplicated Qualified Code(s ): F10.920 - Alcohol use, unspecified with intoxication, uncomplicated Breathalyzer - Breathalyzer Breathalyzer: 0.093 Urine Drug Screen - Test Device Lot number: [id number] Expiration date: 01/14/21 - Control Is test valid?: Yes - Results Drug screen NEGATIVE: No Urine drug screen results: THC-Marijuana, BZO-Benzodiazepines Inpatient Rehab Admission - Rehab Decision to Admit Inpatient rehab admission?: No
[2019-03-24] MEDS ORDERED: METHOCARBAMOL 500 MG TABLET PO PRN (10:56)
[2019-03-24] MEDS ORDERED: MELATONIN 5 MG TABLETS PO PRN (10:56)
[2019-03-24] MEDS ORDERED: MAG HYDROX/AL HYDROX/SIMETH 30 ML UNIT-DOSE CUP PO PRN (10:56)
[2019-03-24] MEDS ORDERED: ACETAMINOPHEN 325 MG TABLET (FP) PO PRN ×2 (10:56)
[2019-03-24] MEDS ORDERED: MENTHOL/PHENOL 1 EACH UD MM PRN (10:56)
[2019-03-24] MEDS ORDERED: ALBUTEROL SO4 8 GM HFA INHALER IH PRN ×2 (10:56→19:38)
[2019-03-24] MEDS ORDERED: MAGNESIUM CITRATE 300 ML BOTTLE PO PRN (10:56)
[2019-03-24] MEDS ORDERED: IBUPROFEN 400 MG TABLET (FP) PO PRN (10:56)
[2019-03-24] MEDS ORDERED: BISMUTH SUBSALICYLATE 262 MG/15 ML BTL PO PRN (10:56)
[2019-03-24] MEDS ORDERED: MAGNESIUM HYDROX 2400MG/30ML ORAL SUSPENSION 30 ML CUP PO PRN (10:56)
[2019-03-24] MEDS ORDERED: chlordiazePOXIDE HCL 25 MG CAPSULE PO ONE (10:57)
[2019-03-24] MEDS: amLODIPine BESYLATE 5 MG TABLET (FP) PO SCH (11:51)
[2019-03-24] MEDS: chlordiazePOXIDE HCL 25 MG CAPSULE PO SCH ×2 (12:25→20:41)
[2019-03-24] MEDS: chlordiazePOXIDE HCL 10 MG CAPSULE PO PRN (13:33)
[2019-03-24] MEDS ORDERED: P-EPHED 60MG/TRIPROLIDI 2.5MG TABLET PO PRN (15:13)
[2019-03-24] MEDS: hydrOXYzine PAMOATE 25 MG CAPSULE (FP) PO PRN (16:51)
[2019-03-24] MEDS ORDERED: METOPROLOL TARTRATE 25 MG TABLET (FP) PO ONE (19:38)
--- NOTE | 2019-03-24 19:38 | PN ---
[facility] Progress Note Note: Vital Signs - 24 hr 03/24/19 03/24/19 03/24/19 10:28 13:00 18:49 Temperature 97.0 F L 97.1 F L 97.6 F Pulse Rate 105 H 104 H 113 H Respiratory 20 16 19 Rate Blood Pressure 163/90 139/87 140/83 pt has no c/o P : Metoprolol 25 mg x once ordered .
[2019-03-24] MEDS: THIAMINE HCL 100 MG TABLET (FP) PO SCH (22:59)
[2019-03-25] MEDS: chlordiazePOXIDE HCL 25 MG CAPSULE PO SCH (05:47)
[2019-03-25] MEDS: amLODIPine BESYLATE 5 MG TABLET (FP) PO SCH (09:46)
[2019-03-25] MEDS: PRENATAL VITAMINS W/ FOLIC ACID TABLET (FP) PO SCH (09:46)
[2019-03-25] MEDS: hydrOXYzine PAMOATE 25 MG CAPSULE (FP) PO PRN ×2 (10:02→16:36)
[2019-03-25 10:11] LABS: HEMATOCRIT 42.6 % (35.4-49); HEMOGLOBIN 14.6 GM/dL (11.7-16.9); MCH 31.8 pg (25.7-33.7); MCHC 34.2 g/dl (32.0-35.9); PLATELET COUNT 186 K/MM3 (134-434); RBC 4.58 M/mm3 (4.00-5.60); WHITE BLOOD COUNT 4.8 K/mm3 (4.0-10.0)
[2019-03-25 10:23] LABS: ALBUMIN 3.7 g/dl (3.4-5.0); BILIRUBIN,TOTAL 1.8 mg/dL (0.2-1); BLOOD UREA NITROGEN 3.8 mg/dL (7-18); CALCIUM 8.9 mg/dL (8.5-10.1); CREATININE 0.8 mg/dL (0.55-1.3); POTASSIUM 3.7 mmol/L (3.5-5.1)
--- NOTE | 2019-03-25 11:43 | PN ---
[facility] CIWA - CIWA Score Nausea/Vomitin-No Nausea/No Vomiting Muscle Tremors: 2 Anxiety: 1-Mildly Anxious Agitation: 1-Slight > Activity Paroxysmal Sweats: No Perspiration Orientation: 0-Oriented Tacttile Disturbances: 0-None Auditory Disturbances: 0-None Visual Disturbances: 0-None Headache: 0-None Present CIWA-Ar Total Score: 4 [facility] Progress Note (SOAP) Subjective: anxiety restless Objective: 03/25/19 11:43 Vital Signs Temperature 97.5 F L 03/25/19 09:05 Pulse Rate 86 03/25/19 09:05 Respiratory Rate 18 03/25/19 09:05 Blood Pressure 130/87 03/25/19 09:05 O2 Sat by Pulse Oximetry (%) aaox3 ambulating no acute distress Assessment: 03/25/19 11:43 mild withdrawals Plan: continue detox d/c in am
[2019-03-25] MEDS: chlordiazePOXIDE HCL 10 MG CAPSULE PO SCH ×2 (13:45→22:11)
[2019-03-25] MEDS: chlordiazePOXIDE HCL 10 MG CAPSULE PO PRN (19:11)
[2019-03-25] MEDS: THIAMINE HCL 100 MG TABLET (FP) PO SCH (22:11)
[2019-03-26] MEDS: chlordiazePOXIDE HCL 10 MG CAPSULE PO SCH (05:35)
--- NOTE | 2019-03-26 08:37 | PN ---
[facility] CIWA - CIWA Score Nausea/Vomitin-No Nausea/No Vomiting Muscle Tremors: 1-None Visible, but [place] Anxiety: 0-No Anxiety, at Ease Agitation: 0-Normal Activity Paroxysmal Sweats: No Perspiration Orientation: 0-Oriented Tacttile Disturbances: 0-None Auditory Disturbances: 0-None Visual Disturbances: 0-None Headache: 0-None Present CIWA-Ar Total Score: 1 S Progress Note (SOAP) Subjective: feeling better Objective: 03/26/19 08:36 Vital Signs Temperature 97.5 F L 03/26/19 06:30 Pulse Rate 75 03/26/19 06:30 Respiratory Rate 18 03/26/19 06:39 Blood Pressure 115/76 03/26/19 06:30 O2 Sat by Pulse Oximetry (%) aaox3 ambulating no acute distress Assessment: 03/26/19 08:37 no s/s of withdrawals Plan: d/c today.
--- NOTE | 2019-03-26 08:39 | DS ---
[facility] Detox Discharge Summary Admission Date: 03/24/19 Discharge Date: 03/26/19 - History Present History: Alcohol Dependence - Physical Exam Results Vital Signs: Vital Signs Temperature 97.5 F L 03/26/19 06:30 Pulse Rate 75 03/26/19 06:30 Respiratory Rate 18 03/26/19 06:39 Blood Pressure 115/76 03/26/19 06:30 O2 Sat by Pulse Oximetry (%) Pertinent Admission Physical Exam Findings: Vital Signs Temperature 97.5 F L 03/26/19 06:30 Pulse Rate 75 03/26/19 06:30 Respiratory Rate 18 03/26/19 06:39 Blood Pressure 115/76 03/26/19 06:30 O2 Sat by Pulse Oximetry (%) Laboratory Tests 03/25/19 03/25/19 03/25/19 07:30 07:30 07:30 WBC 4.8 RBC 4.58 Hgb 14.6 Hct 42.6 MCV 93.0 MCH 31.8 MCHC 34.2 RDW 14.0 Plt Count 186 MPV 10.0 Sodium 138 Potassium 3.7 Chloride 105 Carbon Dioxide 26 Anion Gap 7 L BUN 3.8 L Creatinine 0.8 Est GFR (CKD-EPI)AfAm 136.03 Est GFR (CKD-EPI)NonAf 117.37 Random Glucose 87 Calcium 8.9 Total Bilirubin 1.8 H AST 57 H ALT 73 H Alkaline Phosphatase 79 Total Protein 7.0 Albumin 3.7 RPR Titer Nonreactive aaox3 ambulating no acute distress - Treatment Hospital Course: Detox Protocol Followed, Detoxed Safely, Responded well, Discharged Condition Good, Rehab Referral Accepted - Medication Discharge Medications: Ambulatory Orders Albuterol Sulfate Inhaler - [Ventolin HFA Inhaler -] 2 inh PO PRN PRN #1 inhaler 12/22/18 Amlodipine Besylate [Norvasc -] 5 mg PO DAILY #14 tablet 12/22/18 - Diagnosis (1) Abnormal liver enzymes Current Visit: Yes Status: Chronic (2) Anxiety Current Visit: No Status: Acute (3) Hypertension Current Visit: Yes Status: Chronic Qualifiers: Hypertension type: essential hypertension Qualified Code(s): I10 - Essential (primary) hypertension (4) Nicotine dependence Current Visit: Yes Status: Chronic Qualifiers: Nicotine product type: cigarettes Substance use status: uncomplicated Qualified Code(s): F17.210 - Nicotine dependence, cigarettes, uncomplicated (5) Alcohol dependence with withdrawal Current Visit: Yes Status: Chronic Qualifiers: Complication of substance-induced condition: uncomplicated Qualified Code(s ): F10.230 - Alcohol dependence with withdrawal, uncomplicated (6) Asthma Current Visit: Yes Status: Chronic Qualifiers: Asthma severity: mild Asthma persistence: unspecified Asthma complication type: unspecified Qualified Code(s): J45.909 - Unspecified asthma , uncomplicated - AMA Did Patient Leave Against Medical Advice: No
[2019-03-26] MEDS: PRENATAL VITAMINS W/ FOLIC ACID TABLET (FP) PO SCH (09:23)
[2019-03-26] MEDS: amLODIPine BESYLATE 5 MG TABLET (FP) PO SCH (09:23)
[2019-03-26 09:43] VITALS: BP 144/97; PULSE 88; TEMP 97.7
[2019-03-26] MEDS ORDERED: chlordiazePOXIDE HCL 10 MG CAPSULE PO ONE (10:00)
== END 2019-03-26 09:31 | disposition home or self-care (01) | DRG 775 ==
LOC: YASAS 09:58 → Y6N 10:49
PROVIDERS: ADMIT Allergy & Immunology; ATTEND Allergy & Immunology
PROC: HZ2ZZZZ Detoxification Services for Substance Abuse Treatment (ICD-10-PCS; principal; 2019-03-24)
DX: F10.230 Alcohol dependence with withdrawal, uncomplicated (principal); F10.220 Alcohol dependence with intoxication, uncomplicated; F17.210 Nicotine dependence, cigarettes, uncomplicated; F41.9 Anxiety disorder, unspecified; I10 Essential (primary) hypertension; J45.909 Unspecified asthma, uncomplicated; R94.5 Abnormal results of liver function studies; Z87.891 Personal history of nicotine dependence
CPT/HCPCS: 36415; 80053; 85027; 86593

== ENCOUNTER 2020-06-25 19:45 | Inpatient (IN) | payer OTHER ==
[2020-06-25 20:42] VITALS: BMI 28.8
[2020-06-25] MEDS ORDERED: guaiFENesin 200 MG/10 ML 10 ML UNIT-DOSE CUPS PO PRN (22:36)
[2020-06-25] MEDS ORDERED: LORazepam 1 MG TABLET PO PRN (22:36)
[2020-06-25] MEDS ORDERED: ACETAMINOPHEN 325 MG TABLET (FP) PO PRN ×2 (22:36)
[2020-06-25] MEDS ORDERED: MAGNESIUM HYDROX 2400MG/30ML ORAL SUSPENSION 30 ML CUP PO PRN (22:36)
[2020-06-25] MEDS ORDERED: MAGNESIUM CITRATE 300 ML BOTTLE PO PRN (22:36)
[2020-06-25] MEDS ORDERED: DICYCLOMINE HCL 10 MG CAPSULE PO PRN (22:36)
[2020-06-25] MEDS ORDERED: P-EPHED 60MG/TRIPROLIDI 2.5MG TABLET PO PRN (22:36)
[2020-06-25] MEDS ORDERED: MAG HYDROX/AL HYDROX/SIMETH 30 ML UNIT-DOSE CUP PO PRN (22:36)
[2020-06-25] MEDS ORDERED: METHOCARBAMOL 500 MG TABLET PO PRN (22:36)
[2020-06-25] MEDS ORDERED: BISMUTH SUBSALICYLATE 524 MG/30 ML UD PO PRN (22:36)
[2020-06-25] MEDS ORDERED: ONDANSETRON *ODT* 4 MG TABLET SL PRN (22:36)
[2020-06-25] MEDS ORDERED: IBUPROFEN 400 MG TABLET (FP) PO PRN (22:36)
[2020-06-25] MEDS ORDERED: MENTHOL/PHENOL 1 EACH UD MM PRN (22:36)
[2020-06-25] MEDS ORDERED: cloNIDine HCL 0.1 MG TABLET PO PRN (22:39)
[2020-06-25] MEDS ORDERED: ALBUTEROL SO4 HFA INHALER IH PRN (22:40)
[2020-06-25] MEDS ORDERED: LORazepam 2 MG TABLET ONE (23:13)
[2020-06-25] MEDS: LORazepam 2 MG TABLET PO SCH (23:16)
[2020-06-26] MEDS ORDERED: LORazepam 2 MG TABLET ONE (04:45)
[2020-06-26] MEDS: LORazepam 2 MG TABLET PO SCH ×4 (06:29→22:02)
[2020-06-26] MEDS: amLODIPine BESYLATE 5 MG TABLET (FP) PO SCH (10:19)
[2020-06-26] MEDS: PRENATAL VITAMINS W/ FOLIC ACID TABLET (FP) PO SCH (10:19)
[2020-06-26 10:23] LABS: HEMATOCRIT 42.9 % (35.4-49); MCH 33.6 pg (25.7-33.7); MCHC 35.1 g/dl (32.0-35.9); MEAN CELL VOLUME 95.9 fl (80-96); MEAN PLT VOLUME 8.6 fl (7.5-11.1); PLATELET COUNT 262 K/MM3 (134-434); RBC 4.47 M/mm3 (4.00-5.60); RDW 13.5 % (11.9-15.9); WHITE BLOOD COUNT 3.4 K/mm3 (4.0-10.0)
[2020-06-26 10:35] LABS: BLOOD UREA NITROGEN 7.6 mg/dL (7-18); CALCIUM 8.5 mg/dL (8.5-10.1)
[2020-06-26 10:38] LABS: CREATININE 0.9 mg/dL (0.55-1.3)
[2020-06-26 10:39] LABS: BILIRUBIN,TOTAL 0.5 mg/dL (0.2-1); TOT PROT 7.8 g/dl (6.4-8.2)
[2020-06-26] MEDS: hydrOXYzine PAMOATE 25 MG CAPSULE (FP) PO PRN ×2 (14:21→22:02)
[2020-06-26] MEDS: MELATONIN 5 MG TABLETS PO SCH (22:02)
[2020-06-26] MEDS: THIAMINE HCL 100 MG TABLET (FP) PO SCH (22:02)
[2020-06-27] MEDS: LORazepam 1 MG TABLET PO SCH ×4 (06:05→22:24)
[2020-06-27] MEDS: PRENATAL VITAMINS W/ FOLIC ACID TABLET (FP) PO SCH (10:28)
[2020-06-27] MEDS: hydrOXYzine PAMOATE 25 MG CAPSULE (FP) PO PRN ×3 (10:28→22:25)
[2020-06-27] MEDS: amLODIPine BESYLATE 5 MG TABLET (FP) PO SCH (10:29)
[2020-06-27] MEDS: MELATONIN 5 MG TABLETS PO SCH (22:24)
[2020-06-27] MEDS: THIAMINE HCL 100 MG TABLET (FP) PO SCH (22:24)
[2020-06-28] MEDS ORDERED: LORazepam 0.5 MG TABLET PO PRN
[2020-06-28] MEDS: LORazepam 0.5 MG TABLET PO SCH ×2 (06:43→10:05)
[2020-06-28] MEDS: hydrOXYzine PAMOATE 25 MG CAPSULE (FP) PO PRN (06:44)
[2020-06-28] MEDS ORDERED: MASKS NR ONE (06:46)
[2020-06-28 09:19] VITALS: BP 152/95; PULSE 89; TEMP 96.6
[2020-06-28] MEDS: PRENATAL VITAMINS W/ FOLIC ACID TABLET (FP) PO SCH (10:05)
[2020-06-28] MEDS: amLODIPine BESYLATE 5 MG TABLET (FP) PO SCH (10:06)
[2020-06-28 14:11] LABS: SARS-CoV-2 NAA Not Detected (Not Detected)
[2020-06-29] MEDS ORDERED: LORazepam 0.5 MG TABLET PO ONE (05:00)
== END 2020-06-28 11:35 | disposition home or self-care (01) | DRG 775 ==
LOC: YASAS 19:45 → Y3N 06-26 09:08
PROVIDERS: ADMIT Allergy & Immunology; ATTEND Allergy & Immunology
PROC: HZ2ZZZZ Detoxification Services for Substance Abuse Treatment (ICD-10-PCS; principal; 2020-06-26)
DX: F10.230 Alcohol dependence with withdrawal, uncomplicated (principal); F10.280 Alcohol dependence with alcohol-induced anxiety disorder; F10.282 Alcohol dependence with alcohol-induced sleep disorder; I10 Essential (primary) hypertension; J45.909 Unspecified asthma, uncomplicated; R63.8 Other symptoms and signs concerning food and fluid intake; R73.9 Hyperglycemia, unspecified; R74.01 Elevation of levels of liver transaminase levels; Z87.891 Personal history of nicotine dependence
CPT/HCPCS: 36415; 80053; 85027; 86780; C9803; J0735; Q0162; U0003; U0005

== ENCOUNTER 2020-07-16 19:21 | Inpatient (IN) | payer OTHER ==
[2020-07-16] MEDS ORDERED: ACETAMINOPHEN 325 MG TABLET (FP) PO PRN ×2 (20:12)
[2020-07-16] MEDS ORDERED: MAGNESIUM HYDROX 2400MG/30ML ORAL SUSPENSION 30 ML CUP PO PRN (20:12)
[2020-07-16] MEDS ORDERED: MAGNESIUM CITRATE 300 ML BOTTLE PO PRN (20:12)
[2020-07-16] MEDS ORDERED: BISMUTH SUBSALICYLATE 524 MG/30 ML PO PRN (20:12)
[2020-07-16] MEDS ORDERED: MENTHOL/PHENOL 1 EACH UD MM PRN (20:12)
[2020-07-16] MEDS ORDERED: MAG HYDROX/AL HYDROX/SIMETH 30 ML UNIT-DOSE CUP PO PRN (20:12)
[2020-07-16] MEDS ORDERED: IBUPROFEN 400 MG TABLET (FP) PO PRN (20:12)
[2020-07-16] MEDS ORDERED: ONDANSETRON *ODT* 4 MG TABLET SL PRN (20:12)
[2020-07-16] MEDS ORDERED: METHOCARBAMOL 500 MG TABLET PO PRN (20:12)
[2020-07-16 20:44] VITALS: BMI 29.9
[2020-07-16] MEDS ORDERED: LORazepam 1 MG TABLET ONE (21:33)
[2020-07-16] MEDS: LORazepam 1 MG TABLET PO PRN (21:35)
[2020-07-16] MEDS: MELATONIN 5 MG TABLETS PO SCH (22:28)
[2020-07-16] MEDS: THIAMINE HCL 100 MG TABLET (FP) PO SCH (22:28)
[2020-07-16] MEDS: LORazepam 2 MG TABLET PO SCH (22:28)
[2020-07-16] MEDS ORDERED: ALBUTEROL SO4 HFA INHALER IH PRN (23:24)
[2020-07-17] MEDS: LORazepam 1 MG TABLET PO PRN ×2 (01:57→13:22)
[2020-07-17] MEDS: LORazepam 2 MG TABLET PO SCH ×4 (05:53→22:15)
[2020-07-17] MEDS: PRENATAL VITAMINS W/ FOLIC ACID TABLET (FP) PO SCH (10:46)
[2020-07-17] MEDS: amLODIPine BESYLATE 5 MG TABLET (FP) PO SCH (10:46)
[2020-07-17 12:09] LABS: ALBUMIN 3.9 g/dl (3.4-5.0); CALCIUM 8.4 mg/dL (8.5-10.1)
[2020-07-17 12:12] LABS: BLOOD UREA NITROGEN 9.6 mg/dL (7-18); CREATININE 0.9 mg/dL (0.55-1.3); HEMATOCRIT 42.8 % (35.4-49); HEMOGLOBIN 14.8 GM/dL (11.7-16.9); MCH 32.9 pg (25.7-33.7); MCHC 34.4 g/dl (32.0-35.9); MEAN CELL VOLUME 95.7 fl (80-96); MEAN PLT VOLUME 8.6 fl (7.5-11.1); PLATELET COUNT 278 K/MM3 (134-434); RBC 4.48 M/mm3 (4.00-5.60); RDW 13.5 % (11.9-15.9); WHITE BLOOD COUNT 4.2 K/mm3 (4.0-10.0)
[2020-07-17 12:13] LABS: BILIRUBIN,TOTAL 0.4 mg/dL (0.2-1); TOT PROT 7.6 g/dl (6.4-8.2)
[2020-07-17] MEDS: MELATONIN 5 MG TABLETS PO SCH (22:15)
[2020-07-17] MEDS: THIAMINE HCL 100 MG TABLET (FP) PO SCH (22:15)
[2020-07-18] MEDS: LORazepam 1 MG TABLET PO SCH ×4 (05:34→22:40)
[2020-07-18] MEDS: amLODIPine BESYLATE 5 MG TABLET (FP) PO SCH (10:39)
[2020-07-18] MEDS: PRENATAL VITAMINS W/ FOLIC ACID TABLET (FP) PO SCH (10:39)
[2020-07-18] MEDS: hydrOXYzine PAMOATE 25 MG CAPSULE (FP) PO PRN ×2 (17:35→23:41)
[2020-07-18] MEDS: MELATONIN 5 MG TABLETS PO SCH (21:52)
[2020-07-18] MEDS: THIAMINE HCL 100 MG TABLET (FP) PO SCH (21:53)
[2020-07-19] MEDS ORDERED: LORazepam 0.5 MG TABLET PO PRN
[2020-07-19] MEDS: LORazepam 0.5 MG TABLET PO SCH ×2 (06:04→10:52)
[2020-07-19] MEDS: hydrOXYzine PAMOATE 25 MG CAPSULE (FP) PO PRN ×2 (06:04→14:19)
[2020-07-19 06:13] VITALS: BP 127/79; PULSE 88; TEMP 96.9
[2020-07-19] MEDS: PRENATAL VITAMINS W/ FOLIC ACID TABLET (FP) PO SCH (10:52)
[2020-07-19] MEDS: amLODIPine BESYLATE 5 MG TABLET (FP) PO SCH (10:52)
[2020-07-20] MEDS ORDERED: LORazepam 0.5 MG TABLET PO ONE (05:00)
[2020-07-20 10:11] LABS: SARS-CoV-2 NAA Not Detected (Not Detected)
== END 2020-07-19 14:40 | disposition home or self-care (01) | DRG 775 ==
LOC: YASAS 19:21 → Y3N 20:49
PROVIDERS: ADMIT Allergy & Immunology; ATTEND Allergy & Immunology
PROC: HZ2ZZZZ Detoxification Services for Substance Abuse Treatment (ICD-10-PCS; principal; 2020-07-16)
DX: F10.230 Alcohol dependence with withdrawal, uncomplicated (principal); F41.9 Anxiety disorder, unspecified; I10 Essential (primary) hypertension; J45.909 Unspecified asthma, uncomplicated; J30.9 Allergic rhinitis, unspecified; Z56.0 Unemployment, unspecified
CPT/HCPCS: 36415; 80053; 85027; 86780; 93005; 93010; C9803; Q0162; U0003; U0005

== ENCOUNTER 2020-09-19 20:35 | Inpatient (IN) | payer OTHER ==
[2020-09-19 21:24] VITALS: BMI 27.3
[2020-09-19] MEDS ORDERED: LORazepam 1 MG TABLET PO PRN (21:46)
[2020-09-19] MEDS ORDERED: ACETAMINOPHEN 325 MG TABLET (FP) PO PRN ×2 (21:46)
[2020-09-19] MEDS ORDERED: MAGNESIUM HYDROX 2400MG/30ML ORAL SUSPENSION 30 ML CUP PO PRN (21:46)
[2020-09-19] MEDS ORDERED: MAGNESIUM CITRATE 300 ML BOTTLE PO PRN (21:46)
[2020-09-19] MEDS ORDERED: MAG HYDROX/AL HYDROX/SIMETH 30 ML UNIT-DOSE CUP PO PRN (21:46)
[2020-09-19] MEDS ORDERED: IBUPROFEN 400 MG TABLET (FP) PO PRN (21:46)
[2020-09-19] MEDS ORDERED: MENTHOL/PHENOL 1 EACH UD MM PRN (21:46)
[2020-09-19] MEDS ORDERED: ONDANSETRON *ODT* 4 MG TABLET SL PRN (21:46)
[2020-09-19] MEDS ORDERED: METHOCARBAMOL 500 MG TABLET PO PRN (21:46)
[2020-09-19] MEDS ORDERED: NICOTINE 10 MG CARTRIDGE (INHALER) IH PRN (21:46)
[2020-09-19] MEDS ORDERED: BISMUTH SUBSALICYLATE 524 MG/30 ML PO PRN (21:46)
[2020-09-19] MEDS ORDERED: MELATONIN 5 MG TABLETS PO SCH (22:00)
[2020-09-19] MEDS ORDERED: THIAMINE HCL 100 MG TABLET (FP) PO SCH (22:00)
[2020-09-19] MEDS: LORazepam 2 MG TABLET PO SCH (22:55)
[2020-09-20] MEDS: LORazepam 2 MG TABLET PO SCH ×3 (06:20→18:37)
[2020-09-20] MEDS ORDERED: PRENATAL VITAMINS W/ FOLIC ACID TABLET (FP) PO SCH (10:00)
[2020-09-20 10:27] LABS: HEMATOCRIT 41.7 % (35.4-49); HEMOGLOBIN 14.4 GM/dL (11.7-16.9); MCH 33.2 pg (25.7-33.7); MCHC 34.6 g/dl (32.0-35.9); MEAN CELL VOLUME 95.8 fl (80-96); MEAN PLT VOLUME 8.5 fl (7.5-11.1); PLATELET COUNT 300 10^3/uL (134-434); RBC 4.35 M/mm3 (4.00-5.60); WHITE BLOOD COUNT 4.4 K/mm3 (4.0-10.0)
[2020-09-20 10:56] LABS: CALCIUM 8.2 mg/dL (8.5-10.1)
[2020-09-20 10:57] LABS: ALBUMIN 3.9 g/dl (3.4-5.0); BLOOD UREA NITROGEN 13.1 mg/dL (7-18)
[2020-09-20 11:01] LABS: BILIRUBIN,TOTAL 0.4 mg/dL (0.2-1); TOT PROT 7.5 g/dl (6.4-8.2)
[2020-09-20] MEDS ORDERED: hydrOXYzine PAMOATE 50 MG CAPSULE (FP) PO PRN (15:10)
[2020-09-20 19:35] VITALS: BP 129/95; PULSE 106; TEMP 97.4
[2020-09-20] MEDS ORDERED: CALCIUM CARBONATE 650 MG TABLET PO SCH (22:00)
[2020-09-21] MEDS ORDERED: LORazepam 1 MG TABLET PO SCH (05:00)
[2020-09-22] MEDS ORDERED: LORazepam 0.5 MG TABLET PO PRN
[2020-09-22] MEDS ORDERED: LORazepam 0.5 MG TABLET PO SCH (05:00)
[2020-09-23] MEDS ORDERED: LORazepam 0.5 MG TABLET PO ONE (05:00)
== END 2020-09-20 17:44 | disposition left against medical advice (07) | DRG 770 ==
LOC: YASAS 20:35 → Y3N 22:04
PROVIDERS: ADMIT Allergy & Immunology; ATTEND Allergy & Immunology
PROC: HZ2ZZZZ Detoxification Services for Substance Abuse Treatment (ICD-10-PCS; principal; 2020-09-19)
DX: F10.230 Alcohol dependence with withdrawal, uncomplicated (principal); F41.9 Anxiety disorder, unspecified; I10 Essential (primary) hypertension; E83.51 Hypocalcemia; J45.909 Unspecified asthma, uncomplicated; R74.01 Elevation of levels of liver transaminase levels; Z87.891 Personal history of nicotine dependence; Z56.0 Unemployment, unspecified
CPT/HCPCS: 36415; 80053; 85027; 86780; C9803; T1023-GT; U0003; U0005

== ENCOUNTER 2020-10-08 22:51 | Inpatient (IN) | payer OTHER ==
[2020-10-08 23:51] VITALS: BMI 27.8
[2020-10-09] MEDS ORDERED: IBUPROFEN 400 MG TABLET (FP) PO PRN (00:08)
[2020-10-09] MEDS ORDERED: MENTHOL/PHENOL 1 EACH UD MM PRN (00:08)
[2020-10-09] MEDS ORDERED: ACETAMINOPHEN 325 MG TABLET (FP) PO PRN ×2 (00:08)
[2020-10-09] MEDS ORDERED: ONDANSETRON *ODT* 4 MG TABLET SL PRN (00:08)
[2020-10-09] MEDS ORDERED: MAGNESIUM HYDROX 2400MG/30ML ORAL SUSPENSION 30 ML CUP PO PRN (00:08)
[2020-10-09] MEDS ORDERED: BISMUTH SUBSALICYLATE 524 MG/30 ML PO PRN (00:08)
[2020-10-09] MEDS ORDERED: MAGNESIUM CITRATE 300 ML BOTTLE PO PRN (00:08)
[2020-10-09] MEDS ORDERED: MAG HYDROX/AL HYDROX/SIMETH 30 ML UNIT-DOSE CUP PO PRN (00:08)
[2020-10-09] MEDS ORDERED: METOPROLOL TARTRATE 25 MG TABLET (FP) PO ONE (00:09)
[2020-10-09] MEDS ORDERED: ONDANSETRON *ODT* 4 MG TABLET ONE (02:05)
[2020-10-09] MEDS: hydrOXYzine PAMOATE 25 MG CAPSULE (FP) PO PRN ×3 (03:04→22:10)
[2020-10-09] MEDS: METHOCARBAMOL 500 MG TABLET PO PRN ×2 (03:04→22:10)
[2020-10-09] MEDS ORDERED: diazePAM 5 MG TABLET PO PRN (08:43)
[2020-10-09] MEDS: diazePAM 5 MG TABLET PO PRN ×2 (08:51→18:39)
[2020-10-09] MEDS: diazePAM 5 MG TABLET PO SCH ×3 (10:44→22:10)
[2020-10-09] MEDS: PRENATAL VITAMINS W/ FOLIC ACID TABLET (FP) PO SCH (10:44)
[2020-10-09 11:10] LABS: BASO % 2.1 % (0-2.0); EOS % 4.1 % (0-4.5); HEMATOCRIT 39.4 % (35.4-49); HEMOGLOBIN 13.8 GM/dL (11.7-16.9); LYMPH % 47.4 % (8-40); MCH 33.4 pg (25.7-33.7); MCHC 34.9 g/dl (32.0-35.9); MEAN CELL VOLUME 95.6 fl (80-96); MEAN PLT VOLUME 8.1 fl (7.5-11.1); MONO % 7.2 % (3.8-10.2); NEUT % 39.2 % (42.8-82.8); PLATELET COUNT 254 10^3/uL (134-434); RBC 4.12 M/mm3 (4.00-5.60); RDW 15.8 % (11.9-15.9)
[2020-10-09 11:23] LABS: ALBUMIN 3.7 g/dl (3.4-5.0); BLOOD UREA NITROGEN 7.7 mg/dL (7-18); CALCIUM 7.9 mg/dL (8.5-10.1)
[2020-10-09 11:27] LABS: CREATININE 0.9 mg/dL (0.55-1.3)
[2020-10-09 11:28] LABS: BILIRUBIN,TOTAL 0.5 mg/dL (0.2-1); TOT PROT 7.4 g/dl (6.4-8.2)
[2020-10-09] MEDS: THIAMINE HCL 100 MG TABLET (FP) PO SCH (22:10)
[2020-10-09] MEDS: MELATONIN 5 MG TABLETS PO SCH (22:12)
[2020-10-10] MEDS: METHOCARBAMOL 500 MG TABLET PO PRN ×2 (05:44→22:14)
[2020-10-10] MEDS: diazePAM 5 MG TABLET PO SCH ×4 (05:44→22:14)
[2020-10-10] MEDS: PRENATAL VITAMINS W/ FOLIC ACID TABLET (FP) PO SCH (10:11)
[2020-10-10] MEDS: hydrOXYzine PAMOATE 25 MG CAPSULE (FP) PO PRN ×3 (11:30→22:14)
[2020-10-10] MEDS: CALCIUM 500MG/VIT-D 200 UNITS COMBO TABLET (FP) PO SCH ×2 (13:56→22:14)
[2020-10-10] MEDS ORDERED: amLODIPine BESYLATE 5 MG TABLET (FP) PO SCH (14:00)
[2020-10-10] MEDS: THIAMINE HCL 100 MG TABLET (FP) PO SCH (22:14)
[2020-10-10] MEDS: MELATONIN 5 MG TABLETS PO SCH (22:14)
[2020-10-11] MEDS ORDERED: diazePAM 5 MG TABLET PO SCH (06:00)
[2020-10-11] MEDS ORDERED: diazePAM 5 MG TABLET PO ONE (06:00)
[2020-10-11] MEDS: hydrOXYzine PAMOATE 25 MG CAPSULE (FP) PO PRN (06:21)
[2020-10-11 09:09] VITALS: BP 141/89; PULSE 104; TEMP 97.2
[2020-10-12] MEDS ORDERED: diazePAM 5 MG TABLET PO SCH (06:00)
[2020-10-13] MEDS ORDERED: diazePAM 5 MG TABLET PO ONE (06:00)
== END 2020-10-11 09:45 | disposition home or self-care (01) | DRG 775 ==
LOC: YASAS 22:51 → Y6N 10-09 01:19 → UNDOADMIN 10-09 01:19 → Y6N 10-09 18:52 → UNDODISIN 10-11 09:45
PROVIDERS: ADMIT Allergy & Immunology; ATTEND Allergy & Immunology
PROC: HZ2ZZZZ Detoxification Services for Substance Abuse Treatment (ICD-10-PCS; principal; 2020-10-09)
DX: F10.230 Alcohol dependence with withdrawal, uncomplicated (principal); F17.213 Nicotine dependence, cigarettes, with withdrawal; E83.51 Hypocalcemia; I10 Essential (primary) hypertension; J45.20 Mild intermittent asthma, uncomplicated; R74.01 Elevation of levels of liver transaminase levels
CPT/HCPCS: 36415; 80053; 85025; 86780; C9803; Q0162; U0003; U0005

== ENCOUNTER 2021-02-05 01:13 | Inpatient (IN) | payer OTHER ==
[2021-02-05 01:21] VITALS: BMI 27.5
[2021-02-05] MEDS ORDERED: DICYCLOMINE HCL 10 MG CAPSULE PO PRN (01:42)
[2021-02-05] MEDS ORDERED: MAG HYDROX/AL HYDROX/SIMETH 30 ML UNIT-DOSE CUP PO PRN (01:42)
[2021-02-05] MEDS ORDERED: ACETAMINOPHEN 325 MG TABLET (FP) PO PRN ×2 (01:42)
[2021-02-05] MEDS ORDERED: MENTHOL/PHENOL 1 EACH UD MM PRN (01:42)
[2021-02-05] MEDS ORDERED: guaiFENesin 200 MG/10 ML 10 ML UNIT-DOSE CUPS PO PRN (01:42)
[2021-02-05] MEDS ORDERED: IBUPROFEN 400 MG TABLET (FP) PO PRN (01:42)
[2021-02-05] MEDS ORDERED: MAGNESIUM HYDROX 2400MG/30ML ORAL SUSPENSION 30 ML CUP PO PRN (01:42)
[2021-02-05] MEDS ORDERED: MAGNESIUM CITRATE 300 ML BOTTLE PO PRN (01:42)
[2021-02-05] MEDS ORDERED: ONDANSETRON *ODT* 4 MG TABLET SL PRN (01:42)
[2021-02-05] MEDS ORDERED: BISMUTH SUBSALICYLATE 524 MG/30 ML PO PRN (01:42)
[2021-02-05] MEDS ORDERED: P-EPHED 60MG/TRIPROLIDI 2.5MG TABLET PO PRN (01:42)
[2021-02-05] MEDS: hydrOXYzine PAMOATE 25 MG CAPSULE (FP) PO PRN ×3 (02:15→14:16)
[2021-02-05] MEDS: METHOCARBAMOL 500 MG TABLET PO PRN ×2 (03:52→10:12)
[2021-02-05] MEDS ORDERED: PRENATAL VITAMINS W/ FOLIC ACID TABLET (FP) PO SCH (10:00)
[2021-02-05 13:08] VITALS: BP 131/98; PULSE 125; TEMP 98.4
[2021-02-05 13:28] LABS: HEMATOCRIT 43.7 % (35.4-49); HEMOGLOBIN 14.9 GM/dL (11.7-16.9); MCH 33.9 pg (25.7-33.7); MEAN CELL VOLUME 99.6 fl (80-96); MEAN PLT VOLUME 8.3 fl (7.5-11.1); PLATELET COUNT 257 10^3/uL (134-434); RBC 4.39 M/mm3 (4.00-5.60); RDW 14.7 % (11.9-15.9); WHITE BLOOD COUNT 3.3 K/mm3 (4.0-10.0)
[2021-02-05 13:32] LABS: CALCIUM 8.5 mg/dL (8.5-10.1)
[2021-02-05 13:33] LABS: ALBUMIN 3.7 g/dl (3.4-5.0)
[2021-02-05 13:36] LABS: CREATININE 0.8 mg/dL (0.55-1.3)
[2021-02-05 13:38] LABS: BILIRUBIN,TOTAL 0.4 mg/dL (0.2-1); TOT PROT 7.7 g/dl (6.4-8.2)
[2021-02-05] MEDS ORDERED: THIAMINE HCL 100 MG TABLET (FP) PO SCH (22:00)
[2021-02-05] MEDS ORDERED: MELATONIN 5 MG TABLETS PO SCH (22:00)
== END 2021-02-05 17:10 | disposition left against medical advice (07) | DRG 770 ==
LOC: YASAS 01:13 → Y6N 01:50
PROVIDERS: ADMIT Allergy & Immunology; ATTEND Allergy & Immunology
PROC: HZ2ZZZZ Detoxification Services for Substance Abuse Treatment (ICD-10-PCS; principal; 2021-02-05)
DX: F10.230 Alcohol dependence with withdrawal, uncomplicated (principal); F10.220 Alcohol dependence with intoxication, uncomplicated; F10.24 Alcohol dependence with alcohol-induced mood disorder; I10 Essential (primary) hypertension; J45.20 Mild intermittent asthma, uncomplicated; R00.0 Tachycardia, unspecified; Z56.0 Unemployment, unspecified
CPT/HCPCS: 36415; 80053; 85027; 86780; C9803; U0003; U0005

== ENCOUNTER 2021-04-27 05:48 | Inpatient (IN) | payer OTHER ==
[2021-04-27] MEDS ORDERED: MAGNESIUM HYDROX 2400MG/30ML ORAL SUSPENSION 30 ML CUP PO PRN (10:10)
[2021-04-27] MEDS ORDERED: BISMUTH SUBSALICYLATE 262 MG/15 ML BTL PO PRN (10:10)
[2021-04-27] MEDS ORDERED: METHOCARBAMOL 500 MG TABLET PO PRN (10:10)
[2021-04-27] MEDS ORDERED: LOPERAMIDE HCL 2 MG CAPSULE PO PRN (10:10)
[2021-04-27] MEDS ORDERED: MAG HYDROX/AL HYDROX/SIMETH 30 ML UNIT-DOSE CUP PO PRN (10:10)
[2021-04-27] MEDS ORDERED: ACETAMINOPHEN 325 MG TABLET (FP) PO PRN ×2 (10:10)
[2021-04-27] MEDS ORDERED: ONDANSETRON *ODT* 4 MG TABLET SL PRN (10:10)
[2021-04-27] MEDS ORDERED: NICOTINE 10 MG CARTRIDGE (INHALER) IH PRN (10:10)
[2021-04-27] MEDS ORDERED: IBUPROFEN 400 MG TABLET (FP) PO PRN (10:10)
[2021-04-27] MEDS ORDERED: MENTHOL/PHENOL 1 EACH UD MM PRN (10:10)
[2021-04-27] MEDS ORDERED: MAGNESIUM CITRATE 300 ML BOTTLE PO PRN (10:10)
[2021-04-27] MEDS ORDERED: ALBUTEROL SO4 HFA INHALER IH PRN (10:13)
[2021-04-27] MEDS ORDERED: amLODIPine BESYLATE 5 MG TABLET (FP) PO SCH (10:15)
[2021-04-27] MEDS ORDERED: diazePAM 5 MG TABLET PO PRN (10:15)
[2021-04-27] MEDS: chlordiazePOXIDE HCL 25 MG CAPSULE PO PRN (11:33)
[2021-04-27] MEDS: hydrOXYzine PAMOATE 25 MG CAPSULE (FP) PO SCH ×3 (13:51→22:51)
[2021-04-27] MEDS: chlordiazePOXIDE HCL 25 MG CAPSULE PO SCH ×2 (17:01→22:50)
[2021-04-27] MEDS ORDERED: MELATONIN 5 MG TABLETS PO SCH (22:00)
[2021-04-27] MEDS ORDERED: THIAMINE HCL 100 MG TABLET (FP) PO SCH (22:00)
[2021-04-28] MEDS: chlordiazePOXIDE HCL 25 MG CAPSULE PO PRN (02:53)
[2021-04-28] MEDS: chlordiazePOXIDE HCL 25 MG CAPSULE PO SCH (05:41)
[2021-04-28] MEDS: hydrOXYzine PAMOATE 25 MG CAPSULE (FP) PO SCH (05:41)
[2021-04-28 07:01] VITALS: TEMP 98.4
[2021-04-28 08:53] VITALS: BP 128/87; PULSE 99
[2021-04-28] MEDS ORDERED: PRENATAL VITAMINS W/ FOLIC ACID TABLET (FP) PO SCH (10:00)
[2021-04-28 10:08] LABS: SARS-CoV-2 NAA Not Detected (Not Detected)
[2021-04-28 10:59] LABS: HEMATOCRIT 38.2 % (35.4-49); HEMOGLOBIN 13.3 GM/dL (11.7-16.9); MCHC 34.9 g/dl (32.0-35.9); MEAN CELL VOLUME 91.6 fl (80-96); MEAN PLT VOLUME 8.8 fl (7.5-11.1); PLATELET COUNT 193 10^3/uL (134-434); RBC 4.17 M/mm3 (4.00-5.60); RDW 13.3 % (11.9-15.9); WHITE BLOOD COUNT 4.2 K/mm3 (4.0-10.0)
[2021-04-28 11:00] LABS: ALBUMIN 3.4 g/dl (3.4-5.0)
[2021-04-28 11:01] LABS: BLOOD UREA NITROGEN 6.1 mg/dL (7-18)
[2021-04-28 11:03] LABS: CREATININE 0.8 mg/dL (0.55-1.3)
[2021-04-28 11:05] LABS: BILIRUBIN,TOTAL 0.5 mg/dL (0.2-1); TOT PROT 6.9 g/dl (6.4-8.2)
[2021-04-29] MEDS ORDERED: chlordiazePOXIDE HCL 25 MG CAPSULE PO SCH (05:00)
[2021-04-29 14:08] LABS: SARS-CoV-2 NAA Not Detected (Not Detected)
[2021-04-30] MEDS ORDERED: chlordiazePOXIDE HCL 10 MG CAPSULE PO PRN
[2021-04-30] MEDS ORDERED: chlordiazePOXIDE HCL 10 MG CAPSULE PO SCH (05:00)
[2021-05-01] MEDS ORDERED: chlordiazePOXIDE HCL 10 MG CAPSULE PO SCH (05:00)
[2021-05-02] MEDS ORDERED: chlordiazePOXIDE HCL 10 MG CAPSULE PO ONE (05:00)
== END 2021-04-28 09:17 | disposition left against medical advice (07) | DRG 770 ==
LOC: YASAS 05:48 → Y3N 10:45 → UNDOADMIN 10:45 → UNDODISIN 04-28 09:17
PROVIDERS: ADMIT Allergy & Immunology; ATTEND Allergy & Immunology
PROC: HZ2ZZZZ Detoxification Services for Substance Abuse Treatment (ICD-10-PCS; principal; 2021-04-27)
DX: F10.230 Alcohol dependence with withdrawal, uncomplicated (principal); F17.210 Nicotine dependence, cigarettes, uncomplicated; I10 Essential (primary) hypertension; J45.20 Mild intermittent asthma, uncomplicated
CPT/HCPCS: 36415; 80053; 85027; 86780; 87811; C9803; Q0162; U0003; U0005

== ENCOUNTER 2021-09-02 22:46 | Inpatient (IN) | payer OTHER ==
[2021-09-02 23:19] VITALS: BMI 26.3
[2021-09-02] MEDS ORDERED: DICYCLOMINE HCL 10 MG CAPSULE PO PRN (23:20)
[2021-09-02] MEDS ORDERED: hydrOXYzine PAMOATE 25 MG CAPSULE (FP) PO PRN (23:20)
[2021-09-02] MEDS ORDERED: MAGNESIUM HYDROX 2400MG/30ML ORAL SUSPENSION 30 ML CUP PO PRN (23:20)
[2021-09-02] MEDS ORDERED: LOPERAMIDE HCL 2 MG CAPSULE PO PRN (23:20)
[2021-09-02] MEDS ORDERED: MAGNESIUM CITRATE 300 ML BOTTLE PO PRN (23:20)
[2021-09-02] MEDS ORDERED: IBUPROFEN 400 MG TABLET (FP) PO PRN (23:20)
[2021-09-02] MEDS ORDERED: BENZOCAINE/MENTHOL (CHLORASEPTIC ) LOZENGE MM PRN (23:20)
[2021-09-02] MEDS ORDERED: IBUPROFEN 600 MG TABLET (FP) PO PRN (23:20)
[2021-09-02] MEDS ORDERED: METHOCARBAMOL 500 MG TABLET PO PRN (23:20)
[2021-09-02] MEDS ORDERED: ONDANSETRON *ODT* 4 MG TABLET SL PRN (23:20)
[2021-09-02] MEDS ORDERED: BISMUTH SUBSALICYLATE 524 MG/30 ML PO PRN (23:20)
[2021-09-02] MEDS ORDERED: MAG HYDROX/AL HYDROX/SIMETH 30 ML UNIT-DOSE CUP PO PRN (23:20)
[2021-09-02] MEDS ORDERED: ACETAMINOPHEN 325 MG TABLET (FP) PO PRN ×2 (23:20)
[2021-09-03] MEDS: amLODIPine BESYLATE 5 MG TABLET (FP) PO SCH ×2 (00:06→10:33)
[2021-09-03] MEDS: diazePAM 5 MG TABLET PO SCH ×5 (00:07→22:07)
[2021-09-03] MEDS: PRENATAL VITAMINS W/ FOLIC ACID TABLET (FP) PO SCH (10:33)
[2021-09-03 12:48] LABS: HEMATOCRIT 43.2 % (35.4-49); HEMOGLOBIN 14.3 GM/dL (11.7-16.9); MCH 30.7 pg (25.7-33.7); MCHC 33.1 g/dl (32.0-35.9); MEAN CELL VOLUME 92.6 fl (80-96); PLATELET COUNT 232 10^3/uL (134-434); RBC 4.67 M/mm3 (4.00-5.60); RDW 14.9 % (11.9-15.9); WHITE BLOOD COUNT 3.8 K/mm3 (4.0-10.0)
[2021-09-03] MEDS: diazePAM 5 MG TABLET PO PRN ×2 (13:33→19:47)
[2021-09-03 13:37] LABS: CALCIUM 8.3 mg/dL (8.5-10.1)
[2021-09-03 13:38] LABS: ALBUMIN 3.7 g/dl (3.4-5.0); BLOOD UREA NITROGEN 6.7 mg/dL (7-18)
[2021-09-03 13:41] LABS: CREATININE 0.8 mg/dL (0.55-1.3)
[2021-09-03 13:42] LABS: BILIRUBIN,TOTAL 0.5 mg/dL (0.2-1); TOT PROT 7.2 g/dl (6.4-8.2)
[2021-09-03 13:56] LABS: HIV INTERPRETATION NEGATIVE (NEGATIVE)
[2021-09-03] MEDS ORDERED: THIAMINE HCL 100 MG TABLET (FP) PO SCH (22:00)
[2021-09-03] MEDS ORDERED: MELATONIN 5 MG TABLETS PO SCH (22:00)
[2021-09-04] MEDS: diazePAM 5 MG TABLET PO PRN (02:39)
[2021-09-04] MEDS ORDERED: diazePAM 5 MG TABLET PO SCH (06:00)
[2021-09-04 09:11] VITALS: BP 130/79; PULSE 84; TEMP 97.5
[2021-09-04] MEDS: PRENATAL VITAMINS W/ FOLIC ACID TABLET (FP) PO SCH (12:12)
[2021-09-04] MEDS: amLODIPine BESYLATE 5 MG TABLET (FP) PO SCH (12:12)
[2021-09-05] MEDS ORDERED: diazePAM 5 MG TABLET PO SCH (06:00)
[2021-09-06] MEDS ORDERED: diazePAM 5 MG TABLET PO ONE (06:00)
== END 2021-09-04 12:16 | disposition left against medical advice (07) | DRG 770 ==
LOC: YASAS 22:46 → Y3N 23:31
PROVIDERS: ADMIT Allergy & Immunology; ATTEND Surgery
PROC: HZ2ZZZZ Detoxification Services for Substance Abuse Treatment (ICD-10-PCS; principal; 2021-09-02)
DX: F10.230 Alcohol dependence with withdrawal, uncomplicated (principal); F17.210 Nicotine dependence, cigarettes, uncomplicated; F41.9 Anxiety disorder, unspecified; F32.A Depression, unspecified; I10 Essential (primary) hypertension; J45.20 Mild intermittent asthma, uncomplicated
CPT/HCPCS: 36415; 80053; 85027; 86780; 87389; C9803-CS; U0003; U0005

== ENCOUNTER 2021-09-12 00:57 | Emergency (ER) | payer OTHER ==
[2021-09-12 01:54] VITALS: BP 132/86; PULSE 87; RESP 19; TEMP 98.1; BMI 24.3
== END 2021-09-12 01:50 | disposition left against medical advice (07) ==
LOC: JER 00:57
DX: F10.129 Alcohol abuse with intoxication, unspecified (principal)
CPT/HCPCS: 99281-25